=== PATIENT | male | born 1960 | race African-American/Black ===

== ENCOUNTER 2019-04-29 14:57 | Emergency (ER) | payer MEDICAID ==
[~2019-04-29] VITALS: Ht 180.3 cm; Wt 77.6 kg
[~2019-04-29 14:57] MED LIST: ALPR1TAB6 PO; ASPI-630 PO; ATOR20TA58 PO; CARV6.2511 PO; HYDR-2145 PO; LEVO500T59 PO; LINE600T12 PO; LISI-130 PO; LISI1TAB20 PO; OXYC-411 PO; OXYC5TAB4 PO; PRED20TA PO; QUET300T5 PO; TAMS0.4C97 PO; VORT5TAB PO
[2019-04-29] MEDS ORDERED: IV NORMAL SALINE 1000ML BAG 1,000 ML IV ONE (15:30)
[2019-04-29] MEDS ORDERED: fentaNYL PF VIAL 100 MCG/2 ML VIAL IVP ONE (15:30)
[2019-04-29] MEDS ORDERED: ONDANSETRON PF 4 MG/2 ML VIAL. IVP ONE (15:30)
--- NOTE | 2019-04-29 15:53 | PHYS DOC ---
Past Medical History Past Medical History: Anxiety, Asthma, Bipolar, COPD, Depression, DVT, High Cholesterol, Heart Disease, Hypertension Past Surgical History: Angioplasty, Hip Replacement, Other Additional Past Surgical Histo: Cardiac stent, R HIP REPL Alcohol Use: Occasionally Drug Use: Marijuana Adult General Chief Complaint Chief Complaint: SHORTNESS OF BREATH HPI HPI Patient is a 58 year old M who is brought in today by a family friend for concerns of R leg pain and shortness of breath. Pt tells me that he underwent R hip replacement on 04/20/19 in [place]. He has a history of prior degenerative joint problems and also a trauma to the hip back in the and has had surgery on the hip prior but this surgery on the was a replacement, possibly a revision. Not quite clear. Pt then states that his sister on so he was "stupid" and got in the car and drove 13 hours to come here to be with family. He is now out of his pain and anxiety medications and also noticing shortness of breath. He has pain in the R hip but also cramping pain in the R calf. He reports he has had prior blood clots but is not currently on any blood thinners. Pt also tells me and the nurse that he has a history of anxiety and severe depression and has had suicidal ideation in the past. When we asked if he was suicidal today he replied "I don't have to answer that". I then said that all we wanted to know is if he is safe and would be safe from self hard if discharged and his family said to him again "they just want to know that you are safe Avila" and then pt stated "well, no I don't want to today". Review of Systems Review of Systems Constitutional: Denies fever or chills [] HENT: Denies nasal congestion or sore throat [] Respiratory: Reports shortness of breath, cough Cardiovascular: Denies chest pain GI: Denies abdominal pain, nausea, vomiting, bloody stools or diarrhea [] Musculoskeletal: Reports R hip and calf pain. Integument: Healing R hip incision Neurologic: Denies headache, focal weakness or sensory changes [] All other systems were reviewed and found to be within normal limits, except as documented in this note. Current Medications Current Medications Current Medications Medications (Trade) Dose Ordered Sig/Melody Start Time Stop Time Status Last Admin Dose Admin Fentanyl Citrate (Fentanyl 2ml Vial) 50 mcg 1X ONCE 04/29/19 15:30 04/29/19 15:40 DC 04/29/19 16:12 50 MCG Info (CONTRAST GIVEN -- Rx MONITORING) 1 each PRN DAILY PRN 04/29/19 17:00 04/29/19 17:54 DC Iohexol (Omnipaque 350 Mg/ml) 90 ml 1X ONCE 04/29/19 16:45 04/29/19 16:51 DC 04/29/19 17:01 90 ML Ondansetron HCl (Zofran) 4 mg 1X ONCE 04/29/19 15:30 04/29/19 15:40 DC 04/29/19 16:10 4 MG Sodium Chloride 1,000 ml @ 1,000 mls/hr 1X ONCE 04/29/19 15:30 04/29/19 16:29 DC 04/29/19 16:08 1,000 MLS/HR Allergies Allergies Allergies Coded Allergies Type Severity Reaction Last Updated Verified Penicillins Allergy Severe ANAPHYLAXIS 06/22/17 Yes Physical Exam Physical Exam Constitutional: Well developed, well nourished, no acute distress, non-toxic appearance. Hyperverbal HENT: Normocephalic, atraumatic, bilateral external ears normal, oropharynx moist, no oral exudates, nose normal. [] Neck: Normal range of motion, no tenderness, supple, no stridor. [] Cardiovascular:Heart rate regular rhythm, no murmur [] Lungs & Thorax: Bilateral breath sounds clear to auscultation [] Abdomen: Bowel sounds normal, soft, no tenderness, no masses, no pulsatile masses. [] Skin: R hip incision: josé manuel in place and appears to be healing very well. No drainage and no signs of infection. Back: No tenderness, no CVA tenderness. [] Extremities: R hip pain with palpation, no deformity or edema noted. R calf pain with palpation, no erythema or warmth Neurologic: Alert and oriented X 3, normal motor function, normal sensory function, no focal deficits noted. [] Psychologic: Affect normal, judgement normal, mood normal. [] Current Patient Data Vital Signs Vital Signs Date Time Temp Pulse Resp B/P (MAP) Pulse Ox O2 Delivery O2 Flow Rate FiO2 04/29/19 17:24 86 14 132/79 (96) 91 Room Air 1/1/20 15:06 98.1 98.1 Lab Values Laboratory Tests Test 04/29/19 16:10 White Blood Count 5.3 x10^3/uL (4.0-11.0) Red Blood Count 2.62 x10^6/uL (4.30-5.70) L Hemoglobin 8.7 g/dL (13.0-17.5) L Hematocrit 25.7 % (39.0-53.0) L Mean Corpuscular Volume 98 fL (79-100) Mean Corpuscular Hemoglobin 33 pg (25-35) Mean Corpuscular Hemoglobin Concent 34 g/dL (31-37) Red Cell Distribution Width 13.2 % (11.5-14.5) Platelet Count 435 x10^3/uL (140-400) H Neutrophils (%) (Auto) 63 % (31-73) Lymphocytes (%) (Auto) 21 % (24-48) L Monocytes (%) (Auto) 12 % (0-9) H Eosinophils (%) (Auto) 2 % (0-3) Basophils (%) (Auto) 1 % (0-3) Neutrophils # (Auto) 3.3 x10^3/uL (1.8-7.7) Lymphocytes # (Auto) 1.1 x10^3/uL (1.0-4.8) Monocytes # (Auto) 0.7 x10^3/uL (0.0-1.1) Eosinophils # (Auto) 0.1 x10^3/uL (0.0-0.7) Basophils # (Auto) 0.1 x10^3/uL (0.0-0.2) Prothrombin Time 15.0 SEC (11.7-14.0) H Prothrombin Time INR 1.2 (0.8-1.1) H Activated Partial Thromboplast Time 34 SEC (24-38) Sodium Level 143 mmol/L (136-145) Potassium Level 3.8 mmol/L (3.5-5.1) Chloride Level 106 mmol/L (98-107) Carbon Dioxide Level 26 mmol/L (21-32) Anion Gap 11 (6-14) Blood Urea Nitrogen 23 mg/dL (8-26) Creatinine 1.3 mg/dL (0.7-1.3) Estimated GFR (Cockcroft-Gault) 69.1 BUN/Creatinine Ratio 18 (6-20) Glucose Level 72 mg/dL (70-99) Calcium Level 8.7 mg/dL (8.5-10.1) Magnesium Level 1.8 mg/dL (1.8-2.4) Total Bilirubin 0.2 mg/dL (0.2-1.0) Aspartate Amino Transferase (AST) 13 U/L (15-37) L Alanine Aminotransferase (ALT) 10 U/L (16-63) L Alkaline Phosphatase 94 U/L (46-116) Troponin I Quantitative < 0.017 ng/mL (0.000-0.055) RM-Lut-P-Type Natriuretic Peptide 251 pg/mL (0-124) H Total Protein 6.7 g/dL (6.4-8.2) Albumin 2.7 g/dL (3.4-5.0) L Albumin/Globulin Ratio 0.7 (1.0-1.7) L Laboratory Tests 04/29/19 16:10 Laboratory Tests 04/29/19 16:10 EKG EKG NSR, no STEMI Radiology/Procedures Radiology/Procedures [] Course & Med Decision Making Course & Med Decision Making Pertinent Labs and Imaging studies reviewed. (See chart for details) Pt with anemia, however is 1 week post op so to be expected but could be contributing to his SOB. Pt also has some irregularities on his CT scan in his lung that could be infectious but cannot rule out malignant process. Discussed this with pt. He would like to go home at this time and be with his family. Will cover for possible post operative pneumonia. He has anaphylaxis with PCN so will cover with Levaquin. Have discussed importance of close f/u with PCP to have recheck of lungs and he was given a copy of his CT report that also states this. Pt does not have evidence of a blood clot in his lungs or leg. His incision is healing nicely. Discussed need to move around often and to f/u very closely with his surgeon and he agrees with plan. Pt asking for pain medicine and anxiety medicine. I explained that I would not write for both but felt pain control would be more important at this time. Rx for [place] and Hydroxyzine given as well as a courtesy refill of his Li sinopril/HCTZ while he is here from out of town. Pt asked to return with any worsening symptoms. Aniyah Disclaimer Dragon Disclaimer This electronic medical record was generated, in whole or in part, using a voice recognition dictation system. Departure Departure Impression: Primary Impression: Pneumonia Additional Impression: Post-operative pain Disposition: 01 HOME, SELF-CARE Condition: IMPROVED Referrals: NO PCP (PCP) Patient Instructions: Glucose, Postprandial, Pneumonia, Adult, [id number] Additional Instructions: It is very important that you follow up with your surgeon to have a recheck of your hip. You have no evidence of blood clots today in either your lungs or leg. You do have possible pneumonia. They mention that the irregularities on the CT could be pneumonia but also could be malignancy (cancer) and that you need to have a recheck to make sure that they are resolving. Contact your doctor for recheck. Scripts Lisinopril/Hydrochlorothiazide (LISINOPRIL-HCTZ 20-25 MG TAB) 1 Each Tablet 1 TAB PO DAILY, #30 TAB 5 Refills Prov: LILIANA ORELLANA 04/29/19 Levofloxacin (LEVAQUIN) 750 Mg Tablet 1 TAB PO DAILY for 7 Days, #7 TAB 0 Refills Prov: LILIANA ORELLANA 04/29/19 Hydroxyzine Hcl (HYDROXYZINE HCL) 25 Mg Tablet 1 TAB PO TID PRN for ANXIETY / AGITATION, #15 TAB Prov: LILIANA ORELLANA 04/29/19 Hydrocodone/Apap 10-325 (NORCO 10-325 TABLET) 1 Each Tablet 1 TAB PO TID PRN for PAIN, #20 TAB Prov: LILIANA ORELLANA 04/29/19 Problem Qualifiers LILIANA ORELLANA Apr 29, 2019 15:53
--- NOTE | 2019-04-29 16:04 | RAD ---
VENOUS LOWER EXTREMITY RIGHT 04/29/2019 3:29 PM Clinical Information: Right hip surgery 04/20/2019. Pain in the right calf.. Comparison: None. Technique: Multiple grayscale, color Doppler, and spectral Doppler sonographic images of the lower extremity venous structures were obtained. Findings: The right common femoral, femoral, and popliteal veins exhibit normal compression, respiratory phasicity, and augmentation. No intraluminal thrombi are identified. Color Doppler flow is demonstrated in the right posterior tibial veins. Greater saphenous vein is patent at the saphenofemoral junction. Impression: 1. No evidence of deep venous thrombosis. Electronically signed by: Milagros Colby MD (04/29/2019 4:01 PM) [facility]
[2019-04-29 16:25] LABS: BASO # 0.1 x10^3/uL (0.0-0.2); BASO % 1 % (0-3); EOS # 0.1 x10^3/uL (0.0-0.7); EOS % 2 % (0-3); HEMATOCRIT 25.7 % (39.0-53.0); HEMOGLOBIN 8.7 g/dL (13.0-17.5); LYMPH # 1.1 x10^3/uL (1.0-4.8); LYMPH % 21 % (24-48); MEAN CORPUSCULAR HEMOGLOBIN 33 pg (25-35); MEAN CORPUSCULAR HGB CONC 34 g/dL (31-37); MEAN CORPUSCULAR VOLUME 98 fL (79-100); MONO # 0.7 x10^3/uL (0.0-1.1); MONO % 12 % (0-9); NEUT # 3.3 x10^3/uL (1.8-7.7); NEUT % 63 % (31-73); PLATELET COUNT 435 x10^3/uL (140-400); RED BLOOD COUNT 2.62 x10^6/uL (4.30-5.70); RED CELL DISTRIBUTION WIDTH 13.2 % (11.5-14.5); WHITE BLOOD COUNT 5.3 x10^3/uL (4.0-11.0)
[2019-04-29 16:39] LABS: CALCIUM 8.7 mg/dL (8.5-10.1); CREATININE 1.3 mg/dL (0.7-1.3); GFR 69.1; POTASSIUM 3.8 mmol/L (3.5-5.1)
[2019-04-29 16:41] LABS: ALBUMIN 2.7 g/dL (3.4-5.0); ALBUMIN/GLOBULIN RATIO 0.7 (1.0-1.7); MAGNESIUM 1.8 mg/dL (1.8-2.4); TOTAL BILIRUBIN 0.2 mg/dL (0.2-1.0); TOTAL PROTEIN 6.7 g/dL (6.4-8.2)
[2019-04-29] MEDS ORDERED: IOHEXOL 350 MG/ML 100 ML VIAL. IV ONE (16:45)
[2019-04-29] MEDS ORDERED: CONTRAST GIVEN. MC PRN (17:00)
--- NOTE | 2019-04-29 17:18 | RAD ---
CTA chest with and without contrast 04/29/2019. Reason for exam: Shortness of breath. Recent hip surgery. Possible pulmonary embolism. Helical CT images were made through the chest using an infusion of 90 mL Omnipaque 350. MIP reconstructions were performed. Exposure: One or more of the following individualized dose reduction techniques were utilized for this examination: 1. Automated exposure control 2. Adjustment of the mA and/or kV according to patient size 3. Use of iterative reconstruction technique. Comparison is made with a prior chest CT of 07/01/2017. FINDINGS: There is prominent emphysema through the lungs. There is now an irregular opacity in the right lower lobe measuring about 1.5 x 1.1 cm. This is not seen previously. Similar smaller areas are seen elsewhere in the right lower lobe and/or ill-defined. There is also a more well-defined right upper lobe nodule and sees image 54 of axial series 3). This measures about 6 mm across and was also not visible previously. No other pulmonary parenchymal abnormality is seen. The central airways show no obstruction. There is some mild diffuse bronchial wall thickening consistent with bronchitis. No enlarged lymph nodes are seen. The thoracic aorta is normal in caliber. Evaluation of the pulmonary arterial tree shows no abnormal filling defect extending to the subsegmental branch level. Images through the upper abdomen show no apparent abnormality. IMPRESSION: No evidence of pulmonary embolism. There are new irregular right lower lobe opacities and a small right upper lobe nodule. This could be inflammatory, although early multifocal malignancy in the lower lobe is also possible. Follow-up noncontrast CT in 3 months would be useful. Electronically signed by: Ted Adams Jr., MD (04/29/2019 5:15 PM) [place] [id number]
[2019-04-29 17:24] VITALS: BP 132/79
[2019-04-29] MEDS ORDERED: HYDR-3135 PO (17:31)
[2019-04-29] MEDS ORDERED: LEVO750T31 PO (17:31)
[2019-04-29] MEDS ORDERED: HYDR25TA PO (17:31)
[2019-04-29] MEDS ORDERED: LISI1TAB20 PO (17:40)
== END 2019-04-29 17:50 | disposition home or self-care (01) ==
LOC: ER 14:57
DX: J18.9 Pneumonia, unspecified organism (principal); G89.18 Other acute postprocedural pain; M25.551 Pain in right hip; M79.604 Pain in right leg; F31.9 Bipolar disorder, unspecified; J44.9 Chronic obstructive pulmonary disease, unspecified; E78.00 Pure hypercholesterolemia, unspecified; I11.9 Hypertensive heart disease without heart failure; Z96.641 Presence of right artificial hip joint; Z95.5 Presence of coronary angioplasty implant and graft; Z86.718 Personal history of other venous thrombosis and embolism; Z88.0 Allergy status to penicillin
CPT/HCPCS: 36415; 71275; 80053; 83735; 83880; 84484; 85025; 85610; 85730; 93971; 96374; 96375; 99285; J2405; J3010; J7030; Q9967; 96361

== ENCOUNTER 2019-05-04 11:21 | Emergency (ER) | payer MEDICAID ==
[~2019-05-04] VITALS: Ht 182.9 cm; Wt 76.7 kg
[~2019-05-04 11:21] MED LIST changes: +HYDR-3135 PO; +HYDR25TA PO; +LEVO750T31 PO
[2019-05-04 11:59] LABS: BASO # 0.1 x10^3/uL (0.0-0.2); BASO % 1 % (0-3); EOS # 0.2 x10^3/uL (0.0-0.7); EOS % 3 % (0-3); HEMATOCRIT 32.7 % (39.0-53.0); HEMOGLOBIN 11.1 g/dL (13.0-17.5); LYMPH # 0.9 x10^3/uL (1.0-4.8); LYMPH % 14 % (24-48); MEAN CORPUSCULAR HEMOGLOBIN 33 pg (25-35); MEAN CORPUSCULAR HGB CONC 34 g/dL (31-37); MEAN CORPUSCULAR VOLUME 97 fL (79-100); MONO # 0.7 x10^3/uL (0.0-1.1); MONO % 10 % (0-9); NEUT # 4.7 x10^3/uL (1.8-7.7); NEUT % 72 % (31-73); PLATELET COUNT 450 x10^3/uL (140-400); RED BLOOD COUNT 3.36 x10^6/uL (4.30-5.70); RED CELL DISTRIBUTION WIDTH 13.4 % (11.5-14.5); WHITE BLOOD COUNT 6.6 x10^3/uL (4.0-11.0)
[2019-05-04] MEDS: ASPIRIN CHEWABLE 81 MG TABLET. PO ONE (11:59)
[2019-05-04] MEDS: NITROGLYCERIN SUBLINGUAL 0.4 MG BOTTLE OF 25. SL PRN (12:00)
[2019-05-04 12:06] LABS: PROTHROMBIN TIME PATIENT 13.1 SEC (11.7-14.0)
--- NOTE | 2019-05-04 12:09 | PHYS DOC ---
Past Medical History Past Medical History: Anxiety, Asthma, Bipolar, COPD, Depression, DVT, High Cholesterol, Heart Disease, Hypertension Past Surgical History: Angioplasty, Hip Replacement, Other Additional Past Surgical Histo: Cardiac stent, R HIP REPL Additional Information: 0.5 PPD Alcohol Use: Occasionally Drug Use: Marijuana Adult General Chief Complaint Chief Complaint: CHEST PAIN HPI HPI Patient is a 58 year old male patient with history of hypertension, dyslipi demia, bipolar disorder, COPD, DVT who presents with complaint of chest pain. Patient complaining of left lower and lateral chest pain since yesterday as a constant aching pain that getting worse with movement and associated with shortness of breath, dizziness, palpitation and rated his pain 10 over 10. Patient had history of right hip replacement in [facility] 7 days ago and drove by himself 4 days ago. Patient had history of DVT several months ago but currently does not take any anticoagulation medication. Review of Systems Review of Systems Constitutional: Denies fever or chills [] Eyes: Denies change in visual acuity, redness, or eye pain [] HENT: Denies nasal congestion or sore throat [] Respiratory: Denies cough, reports shortness of breath [] Cardiovascular: No additional information not addressed in HPI [] GI: Denies abdominal pain, nausea, vomiting, bloody stools or diarrhea [] : Denies dysuria or hematuria [] Musculoskeletal: Denies back pain, reports joint pain [] Integument: Denies rash or skin lesions [] Neurologic: Denies headache, focal weakness or sensory changes [] Endocrine: Denies polyuria or polydipsia [] All other systems were reviewed and found to be within normal limits, except as documented in this note. Current Medications Current Medications Current Medications Medications (Trade) Dose Ordered Sig/[facility] Start Time Stop Time Status Last Admin Dose Admin Acetaminophen/ Hydrocodone Bitart (Lortab 5/325) 1 tab 1X ONCE 05/04/19 13:00 05/04/19 13:04 DC 05/04/19 13:29 1 TAB Aspirin (Children'S Aspirin) 324 mg 1X ONCE 05/04/19 12:00 05/04/19 12:01 DC 05/04/19 11:59 324 MG Fentanyl Citrate (Fentanyl 2ml Vial) 50 mcg 1X ONCE 05/04/19 12:00 05/04/19 12:01 DC 05/04/19 12:16 50 MCG Info (CONTRAST GIVEN -- Rx MONITORING) 1 each PRN DAILY PRN 05/04/19 13:15 05/06/19 13:14 Iohexol (Omnipaque 350 Mg/ml) 90 ml 1X ONCE 05/04/19 13:00 05/04/19 13:04 DC Nitroglycerin (Nitrostat) 0.4 mg PRN Q5MIN PRN 05/04/19 12:00 05/05/19 11:59 05/04/19 12:00 0.4 MG Allergies Allergies Allergies Coded Allergies Type Severity Reaction Last Updated Verified Penicillins Allergy Severe ANAPHYLAXIS 06/22/17 Yes Physical Exam Physical Exam Constitutional: Well nourished, mild distress, non-toxic appearance. [] HENT: Normocephalic, atraumatic. Eyes: PERRLA, EOMI, conjunctiva normal, no discharge. [] Neck: Normal range of motion, no tenderness, supple, no stridor. [] Cardiovascular:Heart rate regular rhythm, no murmur [] Lungs & Thorax: Bilateral breath sounds clear to auscultation , right lower lateral chest wall reproducible pain Abdomen: Bowel sounds normal, soft, no tenderness, no masses, no pulsatile masses. [] Skin: Warm, dry, no erythema, no rash. [] Back: No tenderness, no CVA tenderness. [] Extremities: No tenderness, no cyanosis, no clubbing, right hip painful range of motion, no extremity edema or positive Remy sign. Neurologic: Alert and oriented X 3, no focal deficits noted. [] Psychologic: Affect normal,mood normal. [] Current Patient Data Vital Signs Vital Signs Date Time Temp Pulse Resp B/P (MAP) Pulse Ox O2 Delivery O2 Flow Rate FiO2 05/04/19 13:29 18 94 Room Air 05/04/19 12:00 85 147/92 05/04/19 11:23 98.7 98.7 Lab Values Laboratory Tests Test 05/04/19 11:32 White Blood Count 6.6 x10^3/uL (4.0-11.0) Red Blood Count 3.36 x10^6/uL (4.30-5.70) L Hemoglobin 11.1 g/dL (13.0-17.5) L Hematocrit 32.7 % (39.0-53.0) L Mean Corpuscular Volume 97 fL (79-100) Mean Corpuscular Hemoglobin 33 pg (25-35) Mean Corpuscular Hemoglobin Concent 34 g/dL (31-37) Red Cell Distribution Width 13.4 % (11.5-14.5) Platelet Count 450 x10^3/uL (140-400) H Neutrophils (%) (Auto) 72 % (31-73) Lymphocytes (%) (Auto) 14 % (24-48) L Monocytes (%) (Auto) 10 % (0-9) H Eosinophils (%) (Auto) 3 % (0-3) Basophils (%) (Auto) 1 % (0-3) Neutrophils # (Auto) 4.7 x10^3/uL (1.8-7.7) Lymphocytes # (Auto) 0.9 x10^3/uL (1.0-4.8) L Monocytes # (Auto) 0.7 x10^3/uL (0.0-1.1) Eosinophils # (Auto) 0.2 x10^3/uL (0.0-0.7) Basophils # (Auto) 0.1 x10^3/uL (0.0-0.2) Prothrombin Time 13.1 SEC (11.7-14.0) Prothrombin Time INR 1.0 (0.8-1.1) D-Dimer (Rosario) 5.56 ug/mlFEU (0.00-0.50) H Sodium Level 139 mmol/L (136-145) Potassium Level 3.9 mmol/L (3.5-5.1) Chloride Level 101 mmol/L (98-107) Carbon Dioxide Level 30 mmol/L (21-32) Anion Gap 8 (6-14) Blood Urea Nitrogen 19 mg/dL (8-26) Creatinine 1.3 mg/dL (0.7-1.3) Estimated GFR (Cockcroft-Gault) 69.1 BUN/Creatinine Ratio 15 (6-20) Glucose Level 80 mg/dL (70-99) Calcium Level 9.0 mg/dL (8.5-10.1) Magnesium Level 2.0 mg/dL (1.8-2.4) Total Bilirubin 0.2 mg/dL (0.2-1.0) Aspartate Amino Transferase (AST) 14 U/L (15-37) L Alanine Aminotransferase (ALT) 8 U/L (16-63) L Alkaline Phosphatase 134 U/L (46-116) H Creatine Kinase 88 U/L (39-308) Troponin I Quantitative < 0.017 ng/mL (0.000-0.055) SA-Vwk-Q-Type Natriuretic Peptide 321 pg/mL (0-124) H Total Protein 7.5 g/dL (6.4-8.2) Albumin 3.3 g/dL (3.4-5.0) L Albumin/Globulin Ratio 0.8 (1.0-1.7) L Lipase 57 U/L (73-393) L Laboratory Tests 05/04/19 11:32 Laboratory Tests 05/04/19 11:32 EKG EKG EKG interpreted by me. EKG at 1127 showed normal sinus rhythm at rate of 84, normal [place] and QT intervals, no acute ST and T-wave elevation. Radiology/Procedures Radiology/Procedures [][facility] [address] [place], [place] [id number] IMAGING REPORT Signed PATIENT: DEANNE SHARMA ACCOUNT: [id number] : 1960 LOCATION: ER AGE: 58 SEX: M EXAM STATUS: REG ER ORD. PHYSICIAN: CAMERON DYER MD REASON: chest pain PROCEDURE: PORTABLE CHEST 1V EXAM: Chest, single view. HISTORY: Chest pain. COMPARISON: 04/29/2019 FINDINGS: A frontal view of the chest obtained. There is emphysema. There is slight blunting of the right costophrenic angle due to scarring or a trace pleural effusion. There is subtle opacity within the right lower lobe likely corresponding with nodularity on the recent CT. The previously demonstrated nodule within the right upper lobe demonstrates no clear radiographic correlate. The heart is normal in size. There is no pneumothorax. IMPRESSION: 1. Suspected nodular infiltrate within the right lower lobe, better characterized on the recent CT. The small nodule within the right upper lobe on the CT is not seen radiographically. 2. Emphysema. Electronically signed by: Randee Ramos MD (05/04/2019 12:12 PM) [place] [id number] DICTATED and SIGNED BY: RANDEE RAMOS MD DATE: 05/04/19 1212 [facility] [address] [place] [address] IMAGING REPORT Signed PATIENT: DEANNE SHARMA ACCOUNT: [id number] : 1960 LOCATION: ER AGE: 58 SEX: M EXAM STATUS: REG ER ORD. PHYSICIAN: CAMERON DYER MD REASON: chest pain and shortness of breath, history of DVT and recent surgery, elev PROCEDURE: CT ANGIOGRAPHY CHEST CTA OF THE CHEST WITH AND WITHOUT CONTRAST Clinical indications: Chest pain and shortness of breath. History of DVT recent surgery. Technique: Noncontrast axial localizer was performed. After IV infusion of 90 cc of Omnipaque 350, helical CT scanning of the chest was performed using the CT pulmonary embolism protocol. A coronal MIP reconstruction was generated. PQRS compliance Statement One or more of the following individualized dose reduction techniques were utilized for this study: 1. Automated exposure control 2. Adjustment of the mA and/or kV according to patient size 3. Use of iterative reconstruction technique Comparison: April 29, 2019. Findings: No pulmonary embolism is evident. No focal aneurysmal dilatation or dissection of the thoracic aorta is seen. The heart size is normal and no pericardial effusion is evident. No enlarged thoracic lymphadenopathy is evident. No adrenal mass is seen. No pleural effusion or pneumothorax is evident. Bilateral emphysema is again noted. The right upper lobe lung nodule seen centrally within the right upper lobe on image 54 and series 3 is unchanged. Ill-defined lateral inferior right lower lobe nodular infiltrate seen previously is unchanged. The other less prominent ill-defined nodular infiltrates of the more superior aspect of the right lower lobe are unchanged. Peribronchial thickening is seen consistent with bronchitis. No new lung nodule or new lung infiltrate is seen. No lytic process is seen. No adrenal mass is seen. IMPRESSION: No pulmonary embolism. Stable right lower lobe centrilobular ill-defined nodular lung infiltrates. This may be infectious or inflammatory in nature due to distal airway disease but recommend continued chest CT follow-up as previously recommended in 3 months. Stable right upper lobe lung nodule. No new lung infiltrates. Bilateral bronchitis. Electronically signed by: Kari Odonnell MD (05/04/2019 1:24 PM) [id number] DICTATED and SIGNED BY: KARI ODONNELL MD DATE: 05/04/19 1324 Course & Med Decision Making Course & Med Decision Making Pertinent Labs and Imaging studies reviewed. (See chart for details) I've spoken with the patient and/or caregivers. I've explained the patient's condition, diagnosis and treatment plan based on information available to me at this time. I've answered the patient's and/or caregivers questions and addressed any concerns. The patient and/or caregivers have a good understanding the eric ent's diagnosis, condition and treatment plan as can be expected at this point. Vital signs have been stabilized. The patient's condition is stable for discharge from the emergency department. The patient will pursue further outpatient evaluation with her primary care provider or other designated consulting physician as outlined in the discharge instructions. Patient and/or caregivers are agreeable to this plan of care and follow-up instructions have been explained in detail. The patient and/or caregivers have received these instructions in written format and expressed understanding of these discharge instructions. The patient and her caregivers are aware that if any significant change in condition or worsening of symptoms should prompt him to immediately return to this of the closest emergency department. If an emergent department is not readily available I would encourage him to call 911. Aniyah Disclaimer Aniyah Disclaimer This electronic medical record was generated, in whole or in part, using a voice recognition dictation system. Departure Departure Impression: Primary Impression: Musculoskeletal chest pain Additional Impressions: Anemia Status post right hip replacement Disposition: HOME, SELF-CARE (at 1347) Condition: IMPROVED Referrals: NO PCP (PCP) Patient Instructions: Chest Wall Pain, Total Hip Replacement, Care After Additional Instructions: Continue current home medication Follow-up with your primary care physician in 2-3 days Return to ER if not getting better Thank you for visiting [facility]. We appreciate you trusting us with your care. If any additional problems come up don't hesitate to return to visit us. Please follow up with your primary care provider so they can plan additional care if needed and know about the problem that you had. If symptoms worsen come back to the Emergency Department. Any concerning symptoms that start such as chest pain, shortness of air, weakness or numbness on one side of the body, running high fevers or any other concerning symptoms return to the ER. Scripts Hydrocodone/Apap 5-325 (NORCO 5-325 TABLET) 1 Each Tablet 1 TAB PO PRN Q6HRS PRN for PAIN, #8 TAB 0 Refills Prov: CAMERON DYER MD 05/04/19 Problem Qualifiers Additional Impressions: Anemia Anemia type: unspecified type Qualified Codes: D64.9 - Anemia, unspecified CAMERON DYER MD May 04, 2019 12:09
--- NOTE | 2019-05-04 12:15 | RAD ---
EXAM: Chest, single view. HISTORY: Chest pain. COMPARISON: 04/29/2019 FINDINGS: A frontal view of the chest obtained. There is emphysema. There is slight blunting of the right costophrenic angle due to scarring or a trace pleural effusion. There is subtle opacity within the right lower lobe likely corresponding with nodularity on the recent CT. The previously demonstrated nodule within the right upper lobe demonstrates no clear radiographic correlate. The heart is normal in size. There is no pneumothorax. IMPRESSION: 1. Suspected nodular infiltrate within the right lower lobe, better characterized on the recent CT. The small nodule within the right upper lobe on the CT is not seen radiographically. 2. Emphysema. Electronically signed by: Randee Bishop MD (05/04/2019 12:12 PM) [place] [id number]
[2019-05-04] MEDS: fentaNYL PF VIAL 100 MCG/2 ML VIAL IVP ONE (12:16)
[2019-05-04 12:17] LABS: ALBUMIN 3.3 g/dL (3.4-5.0); ALBUMIN/GLOBULIN RATIO 0.8 (1.0-1.7); CREATININE 1.3 mg/dL (0.7-1.3); GFR 69.1; POTASSIUM 3.9 mmol/L (3.5-5.1); TOTAL BILIRUBIN 0.2 mg/dL (0.2-1.0); TOTAL PROTEIN 7.5 g/dL (6.4-8.2)
[2019-05-04 12:24] LABS: D-DIMER 5.56 ug/mlFEU (0.00-0.50)
--- NOTE | 2019-05-04 12:24 | EKG ---
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
[2019-05-04] MEDS: IOHEXOL 350 MG/ML 100 ML VIAL. IV ONE (13:00)
[2019-05-04] MEDS ORDERED: CONTRAST GIVEN. MC PRN (13:15)
--- NOTE | 2019-05-04 13:28 | RAD ---
CTA OF THE CHEST WITH AND WITHOUT CONTRAST Clinical indications: Chest pain and shortness of breath. History of DVT recent surgery. Technique: Noncontrast axial localizer was performed. After IV infusion of 90 cc of Omnipaque 350, helical CT scanning of the chest was performed using the CT pulmonary embolism protocol. A coronal MIP reconstruction was generated. PQRS compliance Statement One or more of the following individualized dose reduction techniques were utilized for this study: 1. Automated exposure control 2. Adjustment of the mA and/or kV according to patient size 3. Use of iterative reconstruction technique Comparison: April 29, 2019. Findings: No pulmonary embolism is evident. No focal aneurysmal dilatation or dissection of the thoracic aorta is seen. The heart size is normal and no pericardial effusion is evident. No enlarged thoracic lymphadenopathy is evident. No adrenal mass is seen. No pleural effusion or pneumothorax is evident. Bilateral emphysema is again noted. The right upper lobe lung nodule seen centrally within the right upper lobe on image 54 and series 3 is unchanged. Ill-defined lateral inferior right lower lobe nodular infiltrate seen previously is unchanged. The other less prominent ill-defined nodular infiltrates of the more superior aspect of the right lower lobe are unchanged. Peribronchial thickening is seen consistent with bronchitis. No new lung nodule or new lung infiltrate is seen. No lytic process is seen. No adrenal mass is seen. IMPRESSION: No pulmonary embolism. Stable right lower lobe centrilobular ill-defined nodular lung infiltrates. This may be infectious or inflammatory in nature due to distal airway disease but recommend continued chest CT follow-up as previously recommended in 3 months. Stable right upper lobe lung nodule. No new lung infiltrates. Bilateral bronchitis. Electronically signed by: Gerald Odonnell MD (05/04/2019 1:24 PM) [id number]
[2019-05-04] MEDS: HYDROcodone/APAP 5/325MG 1 TAB TABLET PO ONE (13:29)
[2019-05-04 13:34] VITALS: BP 145/82
[2019-05-04] MEDS ORDERED: HYDR-3164 PO (13:49)
== END 2019-05-04 14:06 | disposition home or self-care (01) ==
LOC: ER 11:21
DX: R07.89 Other chest pain (principal); D64.9 Anemia, unspecified; Z96.641 Presence of right artificial hip joint; F31.9 Bipolar disorder, unspecified; J44.9 Chronic obstructive pulmonary disease, unspecified; E78.00 Pure hypercholesterolemia, unspecified; I11.9 Hypertensive heart disease without heart failure; Z86.73 Personal history of transient ischemic attack (TIA), and cerebral infarction without residual deficits; F17.200 Nicotine dependence, unspecified, uncomplicated; Z95.5 Presence of coronary angioplasty implant and graft; Z88.0 Allergy status to penicillin
CPT/HCPCS: 36415; 71045; 71275; 80053; 82550; 83690; 83735; 83880; 84484; 85025; 85379; 85610; 93005; 96374; 99285; J3010; Q9967

== ENCOUNTER 2019-06-09 10:31 | Observation (INO) | payer MEDICAID ==
[~2019-06-09] VITALS: Ht 180.3 cm; Wt 71.0 kg
[~2019-06-09 10:31] MED LIST changes: +HYDR-3164 PO
--- NOTE | 2019-06-09 11:13 | PHYS DOC ---
Past Medical History Past Medical History: Anxiety, Asthma, Bipolar, COPD, Depression, DVT, High Cholesterol, Heart Disease, Hypertension Past Surgical History: Angioplasty, Hip Replacement, Other Additional Past Surgical Histo: Cardiac stent, R HIP REPL Smoking Status: Current Every Day Smoker Alcohol Use: Occasionally Drug Use: Marijuana Adult General Chief Complaint Chief Complaint: CHEST PAIN [facility] HPI Patient is a 58 year old with history of hypertension, dyslipidemia, cardiac problem, bipolar, COPD, DVT who presents with complaint of chest pain. Patient complaining of left lower chest and substernal pressure pain since yesterday as a constant pain and rated his pain 9/10. She said the pain radiated to his back and associated with shortness of breath without dizziness, palpitation, cough and congestion, fever and chills, change of pain with activity and movement. Patient states he thinks his chest pain is related to not taking his blood pressure medication. Patient states he did not take blood pressure medication for the last one month because of lack of urination recently had insurance coverage. Patient had the same chest pain for months old. Patient states he had right hip replacement 1 month ago and currently does not take any anticoagulative medication. Patient moved from [place] to [facility] area recently and does not have a primary care physician. Patient complaining of right hip pain and asking for pain medication from the moment he presented to ER. Review of Systems Review of Systems Constitutional: Denies fever or chills [] Eyes: Denies change in visual acuity, redness, or eye pain [] HENT: Denies nasal congestion or sore throat [] Respiratory: Denies cough, reports shortness of breath [] Cardiovascular: No additional information not addressed in HPI [] GI: Denies abdominal pain, nausea, vomiting, bloody stools or diarrhea [] : Denies dysuria or hematuria [] Musculoskeletal: Denies back pain, reports joint pain [] Integument: Denies rash or skin lesions [] Neurologic: Denies headache, focal weakness or sensory changes [] Endocrine: Denies polyuria or polydipsia [] All other systems were reviewed and found to be within normal limits, except as documented in this note. Current Medications Current Medications Current Medications Medications (Trade) Dose Ordered Sig/Melody Start Time Stop Time Status Last Admin Dose Admin Aspirin (Children'S Aspirin) 324 mg 1X ONCE 06/09/19 11:15 06/09/19 11:16 DC 06/09/19 11:27 324 MG Nitroglycerin (Nitrostat) 0.4 mg PRN Q5MIN PRN 06/09/19 11:15 06/10/19 11:14 06/09/19 11:27 0.4 MG Allergies Allergies Allergies Coded Allergies Type Severity Reaction Last Updated Verified Penicillins Allergy Severe ANAPHYLAXIS 06/22/17 Yes Physical Exam Physical Exam Constitutional: Well nourished, mild distress, non-toxic appearance. [] HENT: Normocephalic, atraumatic. Eyes: PERRLA, EOMI, conjunctiva normal, no discharge. [] Neck: Normal range of motion, no tenderness, supple, no stridor. [] Cardiovascular:Heart rate regular rhythm, no murmur [] Lungs & Thorax: Bilateral breath sounds clear to auscultation [] Abdomen: Bowel sounds normal, soft, no tenderness, no masses, no pulsatile masses. [] Skin: Warm, dry, no erythema, no rash. [] Back: No tenderness, no CVA tenderness. [] Extremities: No tenderness, no cyanosis, no clubbing, ROM intact, no edema. [] Neurologic: Alert and oriented X 3, no focal deficits noted. [] Psychologic: Affect anxious, mood normal. [] Current Patient Data Vital Signs Vital Signs Date Time Temp Pulse Resp B/P (MAP) Pulse Ox O2 Delivery O2 Flow Rate FiO2 06/09/19 11:27 83 192/116 06/09/19 10:44 98.2 16 99 Room Air 98.2 Lab Values Laboratory Tests Test 06/09/19 11:18 White Blood Count 6.8 x10^3/uL (4.0-11.0) Red Blood Count 4.26 x10^6/uL (4.30-5.70) L Hemoglobin 13.6 g/dL (13.0-17.5) Hematocrit 40.5 % (39.0-53.0) Mean Corpuscular Volume 95 fL (79-100) Mean Corpuscular Hemoglobin 32 pg (25-35) Mean Corpuscular Hemoglobin Concent 34 g/dL (31-37) Red Cell Distribution Width 13.4 % (11.5-14.5) Platelet Count 257 x10^3/uL (140-400) Neutrophils (%) (Auto) 74 % (31-73) H Lymphocytes (%) (Auto) 14 % (24-48) L Monocytes (%) (Auto) 10 % (0-9) H Eosinophils (%) (Auto) 1 % (0-3) Basophils (%) (Auto) 1 % (0-3) Neutrophils # (Auto) 5.0 x10^3/uL (1.8-7.7) Lymphocytes # (Auto) 1.0 x10^3/uL (1.0-4.8) Monocytes # (Auto) 0.7 x10^3/uL (0.0-1.1) Eosinophils # (Auto) 0.1 x10^3/uL (0.0-0.7) Basophils # (Auto) 0.1 x10^3/uL (0.0-0.2) Prothrombin Time 13.3 SEC (11.7-14.0) Prothrombin Time INR 1.0 (0.8-1.1) D-Dimer (Rosario) 2.07 ug/mlFEU (0.00-0.50) H Sodium Level 142 mmol/L (136-145) Potassium Level 4.1 mmol/L (3.5-5.1) Chloride Level 104 mmol/L (98-107) Carbon Dioxide Level 31 mmol/L (21-32) Anion Gap 7 (6-14) Blood Urea Nitrogen 30 mg/dL (8-26) H Creatinine 1.4 mg/dL (0.7-1.3) H Estimated GFR (Cockcroft-Gault) 63.4 BUN/Creatinine Ratio 21 (6-20) H Glucose Level 93 mg/dL (70-99) Calcium Level 9.3 mg/dL (8.5-10.1) Magnesium Level 2.0 mg/dL (1.8-2.4) Total Bilirubin 0.3 mg/dL (0.2-1.0) Aspartate Amino Transferase (AST) 18 U/L (15-37) Alanine Aminotransferase (ALT) 16 U/L (16-63) Alkaline Phosphatase 122 U/L (46-116) H Creatine Kinase 98 U/L (39-308) Troponin I Quantitative < 0.017 ng/mL (0.000-0.055) KC-Evd-K-Type Natriuretic Peptide 485 pg/mL (0-124) H Total Protein 7.3 g/dL (6.4-8.2) Albumin 3.5 g/dL (3.4-5.0) Albumin/Globulin Ratio 0.9 (1.0-1.7) L Laboratory Tests 06/09/19 11:18 Laboratory Tests 06/09/19 11:18 EKG EKG EKG interpreted by me. EKG at 1038 showed normal sinus rhythm at rate of 88, left atrial abnormality, abnormal left axis deviation, T wave abnormality high l ateral leads, no acute ST-T wave elevation. Radiology/Procedures Radiology/Procedures [facility] [address] [place] [address] IMAGING REPORT Signed PATIENT: DEANNE SHARMA ACCOUNT: [id number] : 1960 LOCATION: ER AGE: 58 SEX: M EXAM STATUS: PRE ER ORD. PHYSICIAN: CAMERON DYER MD REASON: chest pain PROCEDURE: PORTABLE CHEST 1V PORTABLE CHEST 1V Clinical indications: Chest pain. COMPARISON: June 22, 2017. May 04, 2019. Findings: Blunting of the right lateral costophrenic angle is unchanged consistent with pleural thickening. No acute lung infiltrate or pleural effusion or pulmonary edema or lung mass or pneumothorax is seen. The heart size, pulmonary vasculature, mediastinum and both santiago are unremarkable. Impression: No acute radiographic abnormality is seen. Electronically signed by: Kari Odonnell MD (06/09/2019 11:31 AM) [facility] DICTATED and SIGNED BY: KARI ODONNELL MD DATE: 06/09/19 1131 [facility] [address] [place] [address] IMAGING REPORT Signed PATIENT: DEANNE SHARMA ACCOUNT: [id number] : 1960 LOCATION: ED HOLD AGE: 58 SEX: M EXAM STATUS: ADM IN ORD. PHYSICIAN: CAMERON DYER MD REASON: recent hip surgery, chest pain, elevated d-dimer PROCEDURE: LUNG VENT/PERFUSION SCAN(VQ) Ventilation/perfusion lung scan. HISTORY: Recent hip surgery, chest pain, elevated d-dimer, short of breath, history of smoking Ventilation study was done using 10.7 mCi xenon-133. There is mild heterogeneity of the lungs initially which fill in on later images consistent with a history of COPD. Perfusion images were done using 5.5 mCi technetium 99m MAA injected intravenously. There is heterogeneity of the distribution of the MAA although similar to the early phase ventilation images probably related to COPD although small emboli could not be excluded. Due to the COPD this study is indeterminate. CT arteriogram could be of benefit. IMPRESSION: 1. Heterogeneous distribution of the early phase ventilation images and heterogeneity of the perfusion images probably related to COPD. 2. A small pulmonary embolus would be difficult to exclude. 3. Indeterminate for a pulmonary embolus, CT arteriogram may be of benefit. Electronically signed by: Charles Barroso MD (06/09/2019 2:58 PM) [id number] DICTATED and SIGNED BY: CHARLES BARROSO MD DATE: 06/09/19 1458 Course & Med Decision Making Course & Med Decision Making Pertinent Labs and Imaging studies reviewed. (See chart for details) Patient requiring admission for further evaluation and treatment. Discussed with Dr. Shafer who is in agreement with admission. Discussed findings and plan with patient and family, who acknowledge understanding and agreement. Dragon Disclaimer Dragon Disclaimer This electronic medical record was generated, in whole or in part, using a voice recognition dictation system. Departure Departure Impression: Primary Impression: Acute chest pain Additional Impressions: Elevated d-dimer Renal insufficiency Disposition: ADMITTED INPATIENT Admitting Physician: HIMS Condition: IMPROVED Referrals: NO PCP (PCP) The HEART Score for CP Pts HEART Score for Chest Pain: HEART Score for Chest Pain Response (Comments) Value History Moderately Suspicious 1 ECG Nonspecific Repolarizatio 1 Age >45 - < 65 1 Risk Factors 1 or 2 Risk Factors 1 Troponin < Normal Limit 0 Total 4 Risk Factors: Risk Factors: DM, Current or recent (<one month) smoker, HTN, HLP, family history of CAD, obesity. Risk Scores: Score 0 - 3: 2.5% MACE over next 6 weeks - Discharge Home Score 4 - 6: 20.3% MACE over next 6 weeks - Admit for Clinical Observation Score 7 - 10: 72.7% MACE over next 6 weeks - Early Invasive Strategies Problem Qualifiers CAMERON DYER MD Jun 09, 2019 11:13
[2019-06-09] MEDS ORDERED: ASPIRIN CHEWABLE 81 MG TABLET. PO ONE (11:15)
[2019-06-09] MEDS ORDERED: NITROGLYCERIN SUBLINGUAL 0.4 MG BOTTLE OF 25. SL PRN (11:15)
[2019-06-09 11:27] LABS: BASO # 0.1 x10^3/uL (0.0-0.2); BASO % 1 % (0-3); EOS # 0.1 x10^3/uL (0.0-0.7); EOS % 1 % (0-3); HEMATOCRIT 40.5 % (39.0-53.0); HEMOGLOBIN 13.6 g/dL (13.0-17.5); LYMPH % 14 % (24-48); MEAN CORPUSCULAR HEMOGLOBIN 32 pg (25-35); MEAN CORPUSCULAR HGB CONC 34 g/dL (31-37); MEAN CORPUSCULAR VOLUME 95 fL (79-100); MONO # 0.7 x10^3/uL (0.0-1.1); MONO % 10 % (0-9); NEUT % 74 % (31-73); PLATELET COUNT 257 x10^3/uL (140-400); RED BLOOD COUNT 4.26 x10^6/uL (4.30-5.70); RED CELL DISTRIBUTION WIDTH 13.4 % (11.5-14.5); WHITE BLOOD COUNT 6.8 x10^3/uL (4.0-11.0)
--- NOTE | 2019-06-09 11:34 | RAD ---
PORTABLE CHEST 1V Clinical indications: Chest pain. COMPARISON: June 22, 2017. May 04, 2019. Findings: Blunting of the right lateral costophrenic angle is unchanged consistent with pleural thickening. No acute lung infiltrate or pleural effusion or pulmonary edema or lung mass or pneumothorax is seen. The heart size, pulmonary vasculature, mediastinum and both santiago are unremarkable. Impression: No acute radiographic abnormality is seen. Electronically signed by: Gerald Odonnell MD (06/09/2019 11:31 AM) [facility]
[2019-06-09 11:44] LABS: CALCIUM 9.3 mg/dL (8.5-10.1); CREATININE 1.4 mg/dL (0.7-1.3); GFR 63.4; POTASSIUM 4.1 mmol/L (3.5-5.1)
[2019-06-09 11:46] LABS: PROTHROMBIN TIME PATIENT 13.3 SEC (11.7-14.0)
[2019-06-09 11:49] LABS: D-DIMER 2.07 ug/mlFEU (0.00-0.50)
[2019-06-09 11:50] LABS: ALBUMIN 3.5 g/dL (3.4-5.0); ALBUMIN/GLOBULIN RATIO 0.9 (1.0-1.7); TOTAL BILIRUBIN 0.3 mg/dL (0.2-1.0); TOTAL PROTEIN 7.3 g/dL (6.4-8.2)
--- NOTE | 2019-06-09 12:06 | EKG ---
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
[2019-06-09] MEDS ORDERED: HYDROcodone/APAP 5/325MG 1 TAB TABLET PO ONE (13:15)
--- NOTE | 2019-06-09 13:46 | PDOC1 ---
History and Physical Date of Admission Date of Admission DATE: 06/09/19 TIME: 13:46 Identification/Chief Complaint Chief Complaint MAMTAEN IN ER 58 year old with history of hypertension, dyslipidemia, , bipolar, COPD, DVT who presents with complaint of chest pain. complaining of left lower chest and substernal pressure pain since yesterday as a constant pain and rated his pain 9/10. pain radiated to his back and associated with shortness of breath without dizziness, palpitation, cough and congestion, fever and chills, change of pain with activity and movement. thinks his chest pain is related to not taking his blood pressure medication. Patient states he did not take blood pressure medication for the last one month because of lack of urination recently had insurance coverage. Patient had the same chest pain for months Past Medical History Past Medical History Past Medical History Past Medical History: Anxiety, Asthma, Bipolar, COPD, Depression, DVT, High Cholesterol, Heart Disease, Hypertension Past Surgical History: Angioplasty, Hip Replacement, Other Additional Past Surgical Histo: Cardiac stent, R HIP REPL Smoking Status: Current Every Day Smoker Alcohol Use: Occasionally Drug Use: Marijuana fhx htn Cardiovascular: CAD, HTN Pulmonary: Bronchitis, COPD GI: GERD Heme/Onc: No pertinent hx Hepatobiliary: No pertinent hx Psych: Anxiety, Depression Renal/: Chronic renal insuff Past Surgical History Past Surgical History: Other, No pertinent history Family History Family History: Hypertension Social History Smoke: <1 pack per day ALCOHOL: occassional Drugs: Marijuana Current Problem List Problem List Problems Medical Problems: (1) Acute chest pain Status: Acute (2) Elevated d-dimer Status: Acute (3) Renal insufficiency Status: Acute Current Medications Current Medications Current Medications Aspirin (Children'S Aspirin) 324 mg 1X ONCE PO Last administered on 06/09/19at 11:27; Start 06/09/19 at 11:15; Stop 06/09/19 at 11:16; Status DC Nitroglycerin (Nitrostat) 0.4 mg PRN Q5MIN PRN SL CP RATING > 1/10 Last administered on 06/09/19at 11:27; Start 06/09/19 at 11:15; Stop 06/10/19 at 11:14 Acetaminophen/ Hydrocodone Bitart (Lortab 5/325) 1 tab 1X ONCE PO Last administered on 06/09/19at 13:44; Start 06/09/19 at 13:15; Stop 06/09/19 at 13:16; Status DC Active Scripts Active Crescent 5-325 Tablet (Acetaminophen/Hydrocodone Bitart) 1 Each Tablet 1 Tab PO PRN Q6HRS PRN Lisinopril-Hctz 20-25 Mg Tab (Lisinopril/Hydrochlorothiazide) 1 Each Tablet 1 Tab PO DAILY Levaquin (Levofloxacin) 750 Mg Tablet 1 Tab PO DAILY 7 Days Hydroxyzine Hcl 25 Mg Tablet 1 Tab PO TID PRN Crescent 10-325 Tablet (Acetaminophen/Hydrocodone Bitart) 1 Each Tablet 1 Tab PO TID PRN Hydrochlorothiazide Tablet (Hydrochlorothiazide) 25 Mg Tablet 25 Mg PO DAILY 30 Days Oxycodone-Acetaminophen 10-325 (Oxycodone Hcl/Acetaminophen) 1 Each Tablet 1 Tab PO PRN Q6HRS PRN Aspirin 81 Mg Tab.chew 81 Mg PO DAILYWBKFT 30 Days Lisinopril 40 Mg Tablet 40 Mg PO DAILY 30 Days Carvedilol (Carvedilol) 6.25 Mg Tablet 6.25 Mg PO BIDWMEALS 30 Days Atorvastatin Calcium 20 Mg Tablet 20 Mg PO QHS 30 Days Alprazolam 1 Mg Tablet 1 Mg PO PRN Q8HRS PRN Flomax (Tamsulosin Hcl) 0.4 Mg Cap.er.24h 0.4 Mg PO DAILY 30 Days Reported Trintellix (Vortioxetine) 5 Mg Tablet 5 Mg PO HS Seroquel (Quetiapine Fumarate) 300 Mg Tablet 1 Tab PO QHS Allergies Allergies: Coded Allergies: Penicillins (Verified Allergy, Severe, ANAPHYLAXIS, 06/22/17) ROS Review of System Review of Systems Review of Systems Constitutional: Denies fever or chills [] Eyes: Denies change in visual acuity, redness, or eye pain [] HENT: Denies nasal congestion or sore throat [] Respiratory: Denies cough, reports shortness of breath [] Cardiovascular: No additional information not addressed in HPI [] GI: Denies abdominal pain, nausea, vomiting, bloody stools or diarrhea [] : Denies dysuria or hematuria [] Musculoskeletal: Denies back pain, reports joint pain [] Integument: Denies rash or skin lesions [] Neurologic: Denies headache, focal weakness or sensory changes [] Endocrine: Denies polyuria or polydipsia [] 14 PT systems were reviewed and found to be within normal limits, except as documented Cardiovascular: yes Chest Pain Musculoskeletal: Yes Joint Stiffness Skin: No Dry Skin, No Eczema, No Hair Changes, No Lumps, No Mole Changes, No Mottling, No Nail Changes, No Pruritus, No Rash, No Skin Lesion Changes, No Other, No Acne Physical Exam Physical Exam Physical Exam Physical Exam Constitutional: Well nourished, mild distress, non-toxic appearance. [] HENT: Normocephalic, atraumatic. Eyes: PERRLA, EOMI, conjunctiva normal, no discharge. [] Neck: Normal range of motion, no tenderness, supple, no stridor. [] Cardiovascular:Heart rate regular rhythm, no murmur [] Lungs & Thorax: Bilateral breath sounds clear to auscultation [] Abdomen: Bowel sounds normal, soft, no tenderness, no masses, no pulsatile masses. [] Skin: Warm, dry, no erythema, no rash. [] Back: No tenderness, no CVA tenderness. [] Extremities: No tenderness, no cyanosis, no clubbing, ROM intact, no edema. [] Neurologic: Alert and oriented X 3, no focal deficits noted. [] Psychologic: Affect anxious, mood normal. [] General: Alert, Oriented X3, Cooperative, mild distress HEENT: Mucous membr. moist/pink Lungs: Clear to auscultation, Normal air movement Heart: RRR, no thrills Abdomen: Normal bowel sounds, Soft Rectal Exam: not examined PELVIC: Examination not indicated Extremities: No cyanosis, No edema Neuro: Normal speech, Sensation intact, Cranial nerves 3-12 NL Psych/Mental Status: Mental status NL, Mood NL Vitals Vitals Vital Signs Date Time Temp Pulse Resp B/P (MAP) Pulse Ox O2 Delivery O2 Flow Rate FiO2 06/09/19 11:27 83 192/116 06/09/19 10:44 98.2 16 99 Room Air 98.2 Labs Labs Laboratory Tests Test 06/09/19 11:18 White Blood Count 6.8 x10^3/uL (4.0-11.0) Red Blood Count 4.26 x10^6/uL (4.30-5.70) Hemoglobin 13.6 g/dL (13.0-17.5) Hematocrit 40.5 % (39.0-53.0) Mean Corpuscular Volume 95 fL (79-100) Mean Corpuscular Hemoglobin 32 pg (25-35) Mean Corpuscular Hemoglobin Concent 34 g/dL (31-37) Red Cell Distribution Width 13.4 % (11.5-14.5) Platelet Count 257 x10^3/uL (140-400) Neutrophils (%) (Auto) 74 % (31-73) Lymphocytes (%) (Auto) 14 % (24-48) Monocytes (%) (Auto) 10 % (0-9) Eosinophils (%) (Auto) 1 % (0-3) Basophils (%) (Auto) 1 % (0-3) Neutrophils # (Auto) 5.0 x10^3/uL (1.8-7.7) Lymphocytes # (Auto) 1.0 x10^3/uL (1.0-4.8) Monocytes # (Auto) 0.7 x10^3/uL (0.0-1.1) Eosinophils # (Auto) 0.1 x10^3/uL (0.0-0.7) Basophils # (Auto) 0.1 x10^3/uL (0.0-0.2) Prothrombin Time 13.3 SEC (11.7-14.0) Prothromb Time International Ratio 1.0 (0.8-1.1) D-Dimer (Rosario) 2.07 ug/mlFEU (0.00-0.50) Sodium Level 142 mmol/L (136-145) Potassium Level 4.1 mmol/L (3.5-5.1) Chloride Level 104 mmol/L (98-107) Carbon Dioxide Level 31 mmol/L (21-32) Anion Gap 7 (6-14) Blood Urea Nitrogen 30 mg/dL (8-26) Creatinine 1.4 mg/dL (0.7-1.3) Estimated GFR (Cockcroft-Gault) 63.4 BUN/Creatinine Ratio 21 (6-20) Glucose Level 93 mg/dL (70-99) Calcium Level 9.3 mg/dL (8.5-10.1) Magnesium Level 2.0 mg/dL (1.8-2.4) Total Bilirubin 0.3 mg/dL (0.2-1.0) Aspartate Amino Transf (AST/SGOT) 18 U/L (15-37) Alanine Aminotransferase (ALT/SGPT) 16 U/L (16-63) Alkaline Phosphatase 122 U/L (46-116) Creatine Kinase 98 U/L (39-308) Troponin I Quantitative < 0.017 ng/mL (0.000-0.055) HS-Hko-L-Type Natriuretic Peptide 485 pg/mL (0-124) Total Protein 7.3 g/dL (6.4-8.2) Albumin 3.5 g/dL (3.4-5.0) Albumin/Globulin Ratio 0.9 (1.0-1.7) Laboratory Tests Test 06/09/19 11:18 White Blood Count 6.8 x10^3/uL (4.0-11.0) Red Blood Count 4.26 x10^6/uL (4.30-5.70) Hemoglobin 13.6 g/dL (13.0-17.5) Hematocrit 40.5 % (39.0-53.0) Mean Corpuscular Volume 95 fL (79-100) Mean Corpuscular Hemoglobin 32 pg (25-35) Mean Corpuscular Hemoglobin Concent 34 g/dL (31-37) Red Cell Distribution Width 13.4 % (11.5-14.5) Platelet Count 257 x10^3/uL (140-400) Neutrophils (%) (Auto) 74 % (31-73) Lymphocytes (%) (Auto) 14 % (24-48) Monocytes (%) (Auto) 10 % (0-9) Eosinophils (%) (Auto) 1 % (0-3) Basophils (%) (Auto) 1 % (0-3) Neutrophils # (Auto) 5.0 x10^3/uL (1.8-7.7) Lymphocytes # (Auto) 1.0 x10^3/uL (1.0-4.8) Monocytes # (Auto) 0.7 x10^3/uL (0.0-1.1) Eosinophils # (Auto) 0.1 x10^3/uL (0.0-0.7) Basophils # (Auto) 0.1 x10^3/uL (0.0-0.2) Prothrombin Time 13.3 SEC (11.7-14.0) Prothromb Time International Ratio 1.0 (0.8-1.1) D-Dimer (Rosario) 2.07 ug/mlFEU (0.00-0.50) Sodium Level 142 mmol/L (136-145) Potassium Level 4.1 mmol/L (3.5-5.1) Chloride Level 104 mmol/L (98-107) Carbon Dioxide Level 31 mmol/L (21-32) Anion Gap 7 (6-14) Blood Urea Nitrogen 30 mg/dL (8-26) Creatinine 1.4 mg/dL (0.7-1.3) Estimated GFR (Cockcroft-Gault) 63.4 BUN/Creatinine Ratio 21 (6-20) Glucose Level 93 mg/dL (70-99) Calcium Level 9.3 mg/dL (8.5-10.1) Magnesium Level 2.0 mg/dL (1.8-2.4) Total Bilirubin 0.3 mg/dL (0.2-1.0) Aspartate Amino Transf (AST/SGOT) 18 U/L (15-37) Alanine Aminotransferase (ALT/SGPT) 16 U/L (16-63) Alkaline Phosphatase 122 U/L (46-116) Creatine Kinase 98 U/L (39-308) Troponin I Quantitative < 0.017 ng/mL (0.000-0.055) LT-Fzs-P-Type Natriuretic Peptide 485 pg/mL (0-124) Total Protein 7.3 g/dL (6.4-8.2) Albumin 3.5 g/dL (3.4-5.0) Albumin/Globulin Ratio 0.9 (1.0-1.7) Images Images Ventilation/perfusion lung scan. HISTORY: Recent hip surgery, chest pain, elevated d-dimer, short of breath, history of smoking Ventilation study was done using 10.7 mCi xenon-133. There is mild heterogeneity of the lungs initially which fill in on later images consistent with a history of COPD. Perfusion images were done using 5.5 mCi technetium 99m MAA injected intravenously. There is heterogeneity of the distribution of the MAA although similar to the early phase ventilation images probably related to COPD although small emboli could not be excluded. Due to the COPD this study is indeterminate. CT arteriogram could be of benefit. IMPRESSION: 1. Heterogeneous distribution of the early phase ventilation images and heterogeneity of the perfusion images probably related to COPD. 2. A small pulmonary embolus would be difficult to exclude. 3. Indeterminate for a pulmonary embolus, CT arteriogram may be of benefit. Electronically signed by: Charles Mcarthur MD (06/09/2019 2:58 PM) [id number] DICTATED and SIGNED BY: CHARLES MCARTHUR MD DATE: 06/09/19 1458 VTE Prophylaxis Ordered VTE Prophylaxis Devices: Yes VTE Pharmacological Prophylaxi: Yes Assessment/Plan Assessment/Plan IMPRESSION: 1. Heterogeneous distribution of the early phase ventilation images and heterogeneity of the perfusion images probably related to COPD.V/Q 06/09 2. A small pulmonary embolus// difficult to exclude.ON THIS STUDY 06/09 3. Indeterminate for a pulmonary embolus, CT arteriogram may be of benefit. cr too high tonight, pt is satting wnl will observe 4, hypertensive urgency 5. unstable angina 6. COPD PLAN ADMIT SERIAL TROPONIN I Cardiology consult bp control DVT PROPHYLAXIS LOVENOX 70MG SQ BID EMMANUEL COREY MD Jun 09, 2019 13:46
[2019-06-09] MEDS ORDERED: IOHEXOL 350 MG/ML 100 ML VIAL. IV ONE (14:00)
[2019-06-09] MEDS ORDERED: CONTRAST GIVEN. MC PRN (14:15)
--- NOTE | 2019-06-09 15:24 | RAD ---
Ventilation/perfusion lung scan. HISTORY: Recent hip surgery, chest pain, elevated d-dimer, short of breath, history of smoking Ventilation study was done using 10.7 mCi xenon-133. There is mild heterogeneity of the lungs initially which fill in on later images consistent with a history of COPD. Perfusion images were done using 5.5 mCi technetium 99m MAA injected intravenously. There is heterogeneity of the distribution of the MAA although similar to the early phase ventilation images probably related to COPD although small emboli could not be excluded. Due to the COPD this study is indeterminate. CT arteriogram could be of benefit. IMPRESSION: 1. Heterogeneous distribution of the early phase ventilation images and heterogeneity of the perfusion images probably related to COPD. 2. A small pulmonary embolus would be difficult to exclude. 3. Indeterminate for a pulmonary embolus, CT arteriogram may be of benefit. Electronically signed by: Charles Barroso MD (06/09/2019 2:58 PM) [id number]
[2019-06-09 16:28] LABS: BILIRUBIN,URINE NEGATIVE (NEG); CLARITY,URINE CLEAR; COLOR,URINE YELLOW; NITRITE,URINE NEGATIVE (NEG); PROTEIN,URINE 30 mg/dL (NEG-TRACE); UROBILINOGEN,URINE 0.2 mg/dL (0.2 mg/dL)
[2019-06-09 16:33] LABS: BARBITURATES NEG (NEG); BENZODIAZEPINES NEG (NEG); CANNABINOIDS POS (NEG); COCAINE NEG (NEG); METHADONE NEG (NEG); OPIATES POS (NEG); PHENCYCLIDINE NEG (NEG)
[2019-06-09 16:34] LABS: AMPHETAMINE/METHAMPHETAMINE NEG (NEG)
[2019-06-09 16:38] LABS: BACTERIA,URINE 0 /HPF (0-FEW); SQUAMOUS EPITHELIAL CELL,UR OCC /LPF; WBC,URINE RARE /HPF (0-4)
[2019-06-09 16:54] VITALS: BP 179/117
--- NOTE | 2019-06-09 17:20 | NUR ---
LATE ENTRY The patient, DEANNE SHARMA, 58 y/o, M admitted by EMMANUEL COREY MD, was given written information regarding hospital policies, unit procedures and contact persons. Valuables were checked and left at bedside with patient and . Patient explained that he had right hip replacement surgery late March 2019 in [place] and 2 days later moved to [place] due to a in the family. Patient stated that he never followed up or had physical therapy after surgery because he stayed here in [place]. Patient also stated that once he ran out of medication, he has not taken any for over a month. He said because he has not been able to get a new PCP, he can not get medications prescribed. This RN gave patient and the admission booklet with physicians listed for him to consider. Patient stated that he began having pain at his right groin a few weeks ago and that has been his main complaint since admission. He has been consistently requesting pain medication. This RN advised patient of POC and unit routines until physician is able to see patient at bedside. Patient and verbalized understanding.
[2019-06-09] MEDS ORDERED: ALBUTEROL SULFATE 2.5 MG/3 ML NEBU. INH PRN ×2 (17:30)
[2019-06-09] MEDS: HYDROcodone/APAP 5/325MG 1 TAB TABLET PO PRN (18:00)
[2019-06-09] MEDS ORDERED: TAMS0.4C97 PO (18:19)
[2019-06-09] MEDS ORDERED: ALBU2.5V8 IH (18:19)
[2019-06-09] MEDS ORDERED: AMLO10TA8 PO (18:19)
[2019-06-09] MEDS ORDERED: CLONAZEPAM1 MG PO (18:19)
[2019-06-09] MEDS ORDERED: TRAZ150T49 PO (18:19)
[2019-06-09] MEDS ORDERED: ALBU2.5V8 INH (18:19)
[2019-06-09] MEDS ORDERED: CARV6.2511 PO (18:19)
[2019-06-09] MEDS ORDERED: FERR325T14 PO (18:19)
[2019-06-09] MEDS ORDERED: ASPI325T8 PO (18:19)
[2019-06-09] MEDS ORDERED: ALBU2.5V14 NEB (18:19)
[2019-06-09] MEDS: CARVEDILOL 6.25 MG TABLET. PO SCH (19:08)
[2019-06-09 19:09] VITALS: BP 158/100
[2019-06-09] MEDS: hydroCHLOROthiazide 25 MG TABLET PO SCH (19:09)
[2019-06-09] MEDS: amLODIPine BESYLATE 10 MG TABLET PO SCH (19:09)
[2019-06-09] MEDS: LISINOPRIL 20 MG TABLET PO SCH (19:09)
[2019-06-09] MEDS: ALBUTEROL SULFATE 2.5 MG/3 ML NEBU. NEB SCH ×2 (20:01→23:10)
[2019-06-09] MEDS: clonazePAM 0.5 MG TABLET PO SCH (21:05)
[2019-06-09] MEDS: traZODone 50 MG TABLET. PO SCH (21:05)
[2019-06-09 23:06] VITALS: BP 129/79
[2019-06-10] MEDS: HYDROcodone/APAP 5/325MG 1 TAB TABLET PO PRN ×3 (01:20→17:26)
[2019-06-10] MEDS: ALBUTEROL SULFATE 2.5 MG/3 ML NEBU. NEB SCH ×7 (03:14→23:40)
[2019-06-10 03:49] VITALS: BP 141/104
[2019-06-10 07:00] VITALS: BP 125/85
[2019-06-10] MEDS: amLODIPine BESYLATE 10 MG TABLET PO SCH (08:41)
[2019-06-10] MEDS: FERROUS SULFATE 325 MG TABLET. PO SCH (08:41)
[2019-06-10] MEDS: clonazePAM 0.5 MG TABLET PO SCH ×2 (08:42→21:00)
[2019-06-10] MEDS: hydroCHLOROthiazide 25 MG TABLET PO SCH (08:42)
[2019-06-10] MEDS: LISINOPRIL 20 MG TABLET PO SCH (08:42)
[2019-06-10] MEDS: TAMSULOSIN 0.4 MG CAP.ER.24H. PO SCH (08:42)
[2019-06-10] MEDS: CARVEDILOL 6.25 MG TABLET. PO SCH ×2 (08:42→17:25)
[2019-06-10] MEDS: ASPIRIN 325 MG TABLET PO SCH (08:42)
--- NOTE | 2019-06-10 09:36 | PDOC2 ---
SAMUEL MARTIN [employer]PER[employer]OR 06/10/19 0936: CARDIAC CONSULT DATE OF CONSULT Date of Consult DATE: 06/10/19 TIME: 09:30 REASON FOR CONSULT Reason for Consult: Chest pain REFERRING PHYSICIAN Referring Physician: Dr. Naylor SOURCE Source: Chart review, Patient HISTORY OF PRESENT ILLNESS HISTORY OF PRESENT ILLNESS This is a 58 yo male who presented secondary to chest pain, pressure. Patient reports pain began about 36hrs ago. Located in his left chest. Describes as dull weight initially. Eventually developed in heaviness. Seemed to go through to his back. Was short of breath. No dizziness, diaphoresis, palpitations, or nausea/vomiting. No specific worsening or relieving factors. Pain persisted so he went to the ED for further evaluation and treatment. Also complains of feeling like his head is in a "fish bowl". Feels like there is water in his ears. Additionally c/o right hip and groin pain. Had right hip re placement in [place] in March. Unfortunately, sister the following week and he came to [place] to be with family. He has stayed her and did not get any rehab or establish care with PCP. Ran out of all of his medication about a month and a half ago. Blood pressure significantly elevated upon arrival. Pain improved with nitro in ED. PAST MEDICAL HISTORY Cardiovascular: CAD, HTN, Hyperlipidemia Pulmonary: Asthma, COPD GI: GERD Psych: Anxiety, Bipolar, Depression Musculoskeletal: Osteoarthritis PAST SURGICAL HISTORY Past Surgical History: No pertinent history FAMILY HISTORY Family History: Hypertension SOCIAL HISTORY Smoke: 1 pack per day ALCOHOL: occassional Drugs: Marijuana Lives: with Family CURRENT MEDICATIONS CURRENT MEDICATIONS Current Medications Medications (Trade) Dose Ordered Sig/Melody Route PRN Reason Start Time Stop Time Status Last Admin Dose Admin Aspirin (Children'S Aspirin) 324 mg 1X ONCE PO 06/09/19 11:15 06/09/19 11:16 DC 06/09/19 11:27 Nitroglycerin (Nitrostat) 0.4 mg PRN Q5MIN PRN SL CP RATING > 10 06/09/19 11:15 06/10/19 11:14 06/09/19 11:27 Acetaminophen/ Hydrocodone Bitart (Lortab 5/325) 1 tab 1X ONCE PO 06/09/19 13:15 06/09/19 13:16 DC 06/09/19 13:44 Acetaminophen/ Hydrocodone Bitart (Lortab 5/325) 1 tab PRN Q6HRS PRN PO PAIN 06/09/19 17:30 06/10/19 01:20 Amlodipine Besylate (Norvasc) 10 mg DAILY PO 06/09/19 18:30 06/10/19 08:41 Aspirin (Jorge Luis Aspirin) 325 mg DAILY PO 06/10/19 09:00 06/10/19 08:42 Carvedilol (Coreg) 6.25 mg BIDWMEALS PO 06/09/19 18:30 06/10/19 08:42 Ferrous Sulfate (Feosol) 325 mg DAILY PO 06/10/19 09:00 06/10/19 08:41 Tamsulosin HCl (Flomax) 0.4 mg DAILY PO 06/10/19 09:00 06/10/19 08:42 Albuterol Sulfate (Ventolin Neb Soln) 2.5 mg Q4HRS NEB 06/09/19 20:00 06/10/19 08:11 Clonazepam (KlonoPIN) 1 mg BID PO 06/09/19 21:00 06/10/19 08:42 Lisinopril (Prinivil) 20 mg DAILY PO 06/09/19 18:30 06/10/19 08:42 Trazodone HCl (Desyrel) 150 mg QHS PO 06/09/19 21:00 06/09/19 21:05 Hydrochlorothiazide (Hydrodiuril) 25 mg DAILY PO 06/09/19 18:30 06/10/19 08:42 Enoxaparin Sodium (Lovenox 80mg Syringe) 70 mg Q12HR SQ 06/10/19 09:00 06/10/19 08:47 ALLERGIES ALLERGIES: Coded Allergies: Penicillins (Verified Allergy, Severe, ANAPHYLAXIS, 06/22/17) ROS Review of System 14 point ROS conducted with pertinent positives noted above in hPI PHYSICAL EXAM General: Alert, Oriented X3, Cooperative, No acute distress HEENT: Atraumatic, Mucous membr. moist/pink Lungs: Clear to auscultation, Normal air movement Heart: Regular rate, Normal S1, Normal S2, No murmurs Abdomen: Soft, No tenderness Extremities: No edema, Normal pulses Skin: No significant lesion Neuro: Normal speech, Sensation intact Psych/Mental Status: Mental status NL, Mood NL MUSCULOSKELETAL: Osteoarthritic changes both hands VITALS/I&O VITALS/I&O: Vital Signs Date Time Temp Pulse Resp B/P (MAP) Pulse Ox O2 Delivery O2 Flow Rate FiO2 06/10/19 08:42 87 125/85 06/10/19 08:11 97 Room Air 06/10/19 07:00 98.4 20 98.4 I & O 06/09/19 06/09/19 06/10/19 15:00 23:00 07:00 Intake Total 240 ml 0 ml Output Total 225 ml 225 ml Balance 15 ml -225 ml LABS Lab: Laboratory Tests Test 06/09/19 11:18 06/09/19 16:15 06/09/19 16:55 06/09/19 19:47 White Blood Count 6.8 x10^3/uL (4.0-11.0) Red Blood Count 4.26 x10^6/uL (4.30-5.70) L Hemoglobin 13.6 g/dL (13.0-17.5) Hematocrit 40.5 % (39.0-53.0) Mean Corpuscular Volume 95 fL (79-100) Mean Corpuscular Hemoglobin 32 pg (25-35) Mean Corpuscular Hemoglobin Concent 34 g/dL (31-37) Red Cell Distribution Width 13.4 % (11.5-14.5) Platelet Count 257 x10^3/uL (140-400) Neutrophils (%) (Auto) 74 % (31-73) H Lymphocytes (%) (Auto) 14 % (24-48) L Monocytes (%) (Auto) 10 % (0-9) H Eosinophils (%) (Auto) 1 % (0-3) Basophils (%) (Auto) 1 % (0-3) Neutrophils # (Auto) 5.0 x10^3/uL (1.8-7.7) Lymphocytes # (Auto) 1.0 x10^3/uL (1.0-4.8) Monocytes # (Auto) 0.7 x10^3/uL (0.0-1.1) Eosinophils # (Auto) 0.1 x10^3/uL (0.0-0.7) Basophils # (Auto) 0.1 x10^3/uL (0.0-0.2) Prothrombin Time 13.3 SEC (11.7-14.0) Prothrombin Time INR 1.0 (0.8-1.1) D-Dimer (Rosario) 2.07 ug/mlFEU (0.00-0.50) H Sodium Level 142 mmol/L (136-145) Potassium Level 4.1 mmol/L (3.5-5.1) Chloride Level 104 mmol/L (98-107) Carbon Dioxide Level 31 mmol/L (21-32) Anion Gap 7 (6-14) Blood Urea Nitrogen 30 mg/dL (8-26) H Creatinine 1.4 mg/dL (0.7-1.3) H Estimated GFR (Cockcroft-Gault) 63.4 BUN/Creatinine Ratio 21 (6-20) H Glucose Level 93 mg/dL (70-99) Calcium Level 9.3 mg/dL (8.5-10.1) Magnesium Level 2.0 mg/dL (1.8-2.4) Total Bilirubin 0.3 mg/dL (0.2-1.0) Aspartate Amino Transferase (AST) 18 U/L (15-37) Alanine Aminotransferase (ALT) 16 U/L (16-63) Alkaline Phosphatase 122 U/L (46-116) H Creatine Kinase 98 U/L (39-308) Troponin I Quantitative < 0.017 ng/mL (0.000-0.055) < 0.017 ng/mL (0.000-0.055) < 0.017 ng/mL (0.000-0.055) UX-Jax-S-Type Natriuretic Peptide 485 pg/mL (0-124) H Total Protein 7.3 g/dL (6.4-8.2) Albumin 3.5 g/dL (3.4-5.0) Albumin/Globulin Ratio 0.9 (1.0-1.7) L Urine Collection Type Void Urine Color Yellow Urine Clarity Clear Urine pH 6.0 Urine Specific Bayard 1.020 Urine Protein 30 mg/dL (NEG-TRACE) Urine Glucose (UA) Negative mg/dL (NEG) Urine Ketones (Stick) Negative mg/dL (NEG) Urine Blood Small (NEG) Urine Nitrite Negative (NEG) Urine Bilirubin Negative (NEG) Urine Urobilinogen Dipstick 0.2 mg/dL (0.2 mg/dL) Urine Leukocyte Esterase Negative (NEG) Urine RBC 6-10 /HPF (0-2) Urine WBC Rare /HPF (0-4) Urine Squamous Epithelial Cells Occ /LPF Urine Bacteria 0 /HPF (0-FEW) Urine Opiates Screen Pos (NEG) Urine Methadone Screen Neg (NEG) Urine Barbiturates Neg (NEG) Urine Phencyclidine Screen Neg (NEG) Urine Amphetamine/Methamphetamine Neg (NEG) Urine Benzodiazepines Screen Neg (NEG) Urine Cocaine Screen Neg (NEG) Urine Cannabinoids Screen Pos (NEG) Urine Ethyl Alcohol Neg (NEG) Laboratory Tests 06/09/19 11:18 Laboratory Tests 06/09/19 11:18 ECHOCARDIOGRAM ECHOCARDIOGRAM <Conclusion> The left ventricular systolic function is normal and the ejection fraction is within normal range. The Ejection Fraction is 60-65%. There is normal LV segmental wall motion. No significant valvular disease. DATE: 06/24/17 1219 HEART CATH HEART CATH Findings. Hemodynamics. Left ventricular pressure 150/20, aortic root pressure of 154/92. Coronaries. Left main. The left main was a short vessel with no lesions. Left anterior descending. The LAD was a moderate size vessel. It had a mid 20% lesion. Left circumflex. The left circumflex was a very large dominant vessel with no lesions. Right coronary artery. The right coronary artery is a small nondominant vessel with no lesions. Left ventriculogram. The left ventricle showed normal left ventricular systolic function with an ejection fraction estimated at 55%. Aortic root. The aortic root is mildly enlarged. There was no aortic insufficiency. <Conclusion> Mild single-vessel coronary artery disease. Intact LV systolic function. Mildly enlarged aortic root. DATE: 09/02/17 1252 ASSESSMENT/PLAN ASSESSMENT/PLAN 1. Chest pain, mixed feature. AMI ruled out. Possible related to malignant HTN. 2. CAD; mild, non-obstructive single-vessel disease per cath 2018 as noted above. 3. Malignant hypertension; due to noncompliance. Has been out of all med for the last month and a half. Now well controlled 4. Hyperlipidemia 5. GERD 6. DAVID, ? CKD 7. Recent right hip replacement in [place] 03/2019. Did not get any physical th erapy postoperatively as he had to come to [place] due to in the family. 8. Tobaccoism, marijuana use; discussed/encouraged cessation Recommendations Home antiHTN therapy resumed Hydralazine IV PRN Lipids ASA, statin Echo to assess LV systolic function IF CP recurrent despite adequate BP control, will consider for further ischemic evaluation with [facility] tomorrow. GUIDO ATKINS MD 06/11/19 0931: CARDIAC CONSULT ASSESSMENT/PLAN ASSESSMENT/PLAN Late entry for 06/10/2019. Pt. seen and examined. Agree with above [employer] note. No acute concerns for coronary ischemia. Restart BP meds. If no improvement, consider additional testing, otherwise, supportive care. Thanks SAMUEL MARTIN APRN Jun 10, 2019 09:36 GUIDO ATKINS MD Jun 11, 2019 09:31
[2019-06-10 11:00] VITALS: BP 123/84
[2019-06-10] MEDS ORDERED: PSEUDOEPHEDRINE 30 MG TABLET. PO PRN (11:45)
--- NOTE | 2019-06-10 12:35 | NUR ---
SS following up with discharge planning. SS reviewed pt chart. Pt is from home with spouse and is currently on room air. SS will continue to follow for discharge planning.
--- NOTE | 2019-06-10 13:21 | CARD ---
MR#: [id number] Date of Study: 06/10/2019 Ordering Physician: SAMUEL MARTIN, Referring Physician: SAMUEL MARTIN, Tech: Tatum Bedolla [facility] APPROVED REPORT EXAM: Two-dimensional and M-mode echocardiogram with Doppler and color Doppler. Other Information Quality : AverageHR: 89bpm Rhythm : NSRTechnically limited study due to smoking. INDICATION Chest Pain 2D DIMENSIONS RVDd2.9 (2.9-3.5cm)Left Atrium(2D)3.0 (1.6-4.0cm) IVSd1.5 (0.7-1.1cm)Aortic Root(2D)2.6 (2.0-3.7cm) LVDd4.1 (3.9-5.9cm)LVOT Diameter2.0 (1.8-2.4cm) PWd1.4 (0.7-1.1cm)LVDs3.0 (2.5-4.0cm) FS (%) 26.9 %SV40.3 ml LVEF(%)55.0 (>50%) Aortic Valve AoV Peak Piter.151.6cm/sAoV VTI22.0cm AO Peak GR.9.2mmHgLVOT VTI 16.00cm AO Mean GR.4mmHgAVA (VMAX)2.30cm2 BRADY (VTI)2.50cm2 Mitral Valve MV E Nmxgxecb02.1cm/sMV DECEL [id number] MV A Gwhjvfbu68.3cm/sE/A Ratio0.7 MV A [id number] TDI Lateral E' P. V11.46cm/sMedial E' P. V6.89cm/s E/Lateral E'5.1E/Medial E'8.4 LEFT VENTRICLE The left ventricle is normal size. There is moderate concentric left ventricular hypertrophy. The lef t ventricular systolic function is normal. The Ejection Fraction is 55-60%. There is normal LV segmen rosi wall motion. Transmitral Doppler flow pattern is Grade I-abnormal relaxation pattern. RIGHT VENTRICLE The right ventricle is normal size. There is normal right ventricular wall thickness. The right ventr icular systolic function is normal. ATRIA The left atrium size is normal. The right atrium size is normal. The interatrial septum is intact wit h no evidence for an atrial septal defect or patent foramen ovale as noted on 2-D or Doppler imaging. AORTIC VALVE The aortic valve is thickened but opens well. The aortic valve is trileaflet. Doppler and Color Flow revealed no significant aortic regurgitation. There is no significant aortic valvular stenosis. MITRAL VALVE The mitral valve is normal in structure and function. There is no evidence of mitral valve prolapse. There is no mitral valve stenosis. Doppler and Color-flow revealed trace mitral regurgitation. TRICUSPID VALVE The tricuspid valve is normal in structure and function. Doppler and Color Flow revealed no tricuspid valve regurgitation noted. There is no tricuspid valve prolapse or vegetation. There is no tricuspid valve stenosis. PULMONIC VALVE The pulmonic valve is not well visualized. GREAT VESSELS The aortic root is normal in size. The ascending aorta is normal in size. The IVC is normal in size a nd collapses >50% with inspiration. PERICARDIAL EFFUSION There is no evidence of significant pericardial effusion. Critical Notification Critical Value: No <Conclusion> The left ventricular systolic function is normal. The Ejection Fraction is 55-60%. There is moderate concentric left ventricular hypertrophy. There is normal LV segmental wall motion. Transmitral Doppler flow pattern is Grade I-abnormal relaxation pattern. Doppler and Color-flow revealed trace mitral regurgitation. There is no evidence of significant pericardial effusion. Signed by : Felton Oliveros, Electronically Approved : 06/10/2019 12:40:41
--- NOTE | 2019-06-10 14:09 | PDOC ---
[employer] PROGRESS NOTE Chief Complaint Chief Complaint Chest pain CAD; mild, non-obstructive single-vessel disease per cath 2018 Malignant hypertension; due to noncompliance. Hyperlipidemia GERD DAVID, ? CKD Recent right hip replacement Tobaccoism, marijuana use History of Present Illness History of Present Illness Pt seen and examined alongside his . Discussed case with nursing staff Chart reviewed No acute distress. Pt continues to complain of right hip and groin pain. Pt also says he feels like there is fluid in his R ear and would like us to take a look in his ear. Vitals/I&O Vitals/I&O: Vital Signs Date Time Temp Pulse Resp B/P (MAP) Pulse Ox O2 Delivery O2 Flow Rate FiO2 06/10/19 11:22 96 Room Air 06/10/19 11:00 98.1 98 20 123/84 (97) 98.1 I & O 06/09/19 06/09/19 06/10/19 15:00 23:00 07:00 Intake Total 240 ml 0 ml Output Total 225 ml 225 ml Balance 15 ml -225 ml Physical Exam Physical Exam: General: A&Ox3 in NAD ENT: R TM opaque compared to L. B/l w/out redness or swelling Heart: RRR, no murmur Lungs: CTAB, no wheezes ABD: non tender, +BS, no HSM Ext: no swelling. No redness. General: Alert, Oriented X3, Cooperative, No acute distress Heart: Regular rate, Normal S1, Normal S2, No murmurs Lungs: Clear Abdomen: Soft, No tenderness Extremities: No edema, Normal pulses Skin: No significant lesion Labs Labs: Laboratory Tests Test 06/09/19 16:15 06/09/19 16:55 06/09/19 19:47 Urine Collection Type Void Urine Color Yellow Urine Clarity Clear Urine pH 6.0 Urine Specific [place] 1.020 Urine Protein 30 mg/dL (NEG-TRACE) Urine Glucose (UA) Negative mg/dL (NEG) Urine Ketones (Stick) Negative mg/dL (NEG) Urine Blood Small (NEG) Urine Nitrite Negative (NEG) Urine Bilirubin Negative (NEG) Urine Urobilinogen Dipstick 0.2 mg/dL (0.2 mg/dL) Urine Leukocyte Esterase Negative (NEG) Urine RBC 6-10 /HPF (0-2) Urine WBC Rare /HPF (0-4) Urine Squamous Epithelial Cells Occ /LPF Urine Bacteria 0 /HPF (0-FEW) Urine Opiates Screen Pos (NEG) Urine Methadone Screen Neg (NEG) Urine Barbiturates Neg (NEG) Urine Phencyclidine Screen Neg (NEG) Urine Amphetamine/Methamphetamine Neg (NEG) Urine Benzodiazepines Screen Neg (NEG) Urine Cocaine Screen Neg (NEG) Urine Cannabinoids Screen Pos (NEG) Urine Ethyl Alcohol Neg (NEG) Troponin I Quantitative < 0.017 ng/mL (0.000-0.055) < 0.017 ng/mL (0.000-0.055) Review of Systems Review of Systems: Denies SOA Denies chest pain Reports right hip and groin pain. Assessment and Plan Assessmemt and Plan Problems Medical Problems: (1) Acute chest pain Status: Acute (2) Elevated d-dimer Status: Acute (3) Renal insufficiency Status: Acute Chest pain, mixed feature. AMI ruled out. Possible related to malignant HTN. CAD; mild, non-obstructive single-vessel disease per cath 2018 as noted above. Malignant hypertension; due to noncompliance. Has been out of all med for the last month and a half. Now well controlled Hyperlipidemia GERD Renal Insufficiency Recent right hip replacement in [place] 03/2019. Did not get any physical therapy postoperatively as he had to come to [place] due to in the family. Tobaccoism, marijuana use Plan: -cardiac monitoring -PT/OT -Consult Ortho -Sudafed for ear congestion per pharmacy -Morphine 2mg IV q2hrs PRN for pain -DVT ppx -Full code Comment Review of Relevant I have reviewed the following items bety (where applicable) has been applied. Medications: Current Medications Medications (Trade) Dose Ordered Sig/Melody Route PRN Reason Start Time Stop Time Status Last Admin Dose Admin Acetaminophen/ Hydrocodone Bitart (Lortab 5/325) 1 tab PRN Q6HRS PRN PO PAIN 06/09/19 17:30 06/10/19 08:45 Amlodipine Besylate (Norvasc) 10 mg DAILY PO 06/09/19 18:30 06/10/19 08:41 Aspirin (Jorge Luis Aspirin) 325 mg DAILY PO 06/10/19 09:00 06/10/19 08:42 Carvedilol (Coreg) 6.25 mg BIDWMEALS PO 06/09/19 18:30 06/10/19 08:42 Ferrous Sulfate (Feosol) 325 mg DAILY PO 06/10/19 09:00 06/10/19 08:41 Tamsulosin HCl (Flomax) 0.4 mg DAILY PO 06/10/19 09:00 06/10/19 08:42 Albuterol Sulfate (Ventolin Neb Soln) 2.5 mg Q4HRS NEB 06/09/19 20:00 06/10/19 11:22 Clonazepam (KlonoPIN) 1 mg BID PO 06/09/19 21:00 06/10/19 08:42 Lisinopril (Prinivil) 20 mg DAILY PO 06/09/19 18:30 06/10/19 08:42 Trazodone HCl (Desyrel) 150 mg QHS PO 06/09/19 21:00 06/09/19 21:05 Hydrochlorothiazide (Hydrodiuril) 25 mg DAILY PO 06/09/19 18:30 06/10/19 08:42 Enoxaparin Sodium (Lovenox 80mg Syringe) 70 mg Q12HR SQ 06/10/19 09:00 06/10/19 08:47 AJIT NAZARIO III DO Jun 10, 2019 14:09
[2019-06-10] MEDS: MORPHINE SULFATE 2 MG/ML VIAL. IV PRN ×3 (14:43→22:57)
[2019-06-10 15:00] VITALS: BP 107/65
--- NOTE | 2019-06-10 16:33 | RAD ---
2 view study of the right hip and AP view of the pelvis Clinical indications: Status post right hip replacement. Right hip pain. COMPARISON: Right hip radiographic study dated September 01, 2017. FINDINGS: Since the previous study, the previously seen metallic lateral stabilizer plate within the proximal right femur has been removed. Total right hip arthroplasty has been performed in the interim and is well aligned. The femoral stem is located centrally within the intramedullary canal of the proximal right femur. No acute fracture or lytic process is seen. IMPRESSION: Total right hip arthroplasty. No acute osseous abnormality. Electronically signed by: Gerald Odonnell MD (06/10/2019 4:30 PM) [facility]
[2019-06-10 18:40] VITALS: BP 134/84
[2019-06-10] MEDS ORDERED: ATORVASTATIN CALCIUM 20 MG TABLET PO SCH (21:00)
[2019-06-10] MEDS: traZODone 50 MG TABLET. PO SCH (21:00)
[2019-06-10 23:00] VITALS: BP 127/78
[2019-06-11] MEDS: ALBUTEROL SULFATE 2.5 MG/3 ML NEBU. NEB SCH ×3 (01:41→11:51)
[2019-06-11] MEDS: HYDROcodone/APAP 5/325MG 1 TAB TABLET PO PRN ×2 (02:20→09:32)
[2019-06-11 03:03] VITALS: BP 124/72
[2019-06-11] MEDS: MORPHINE SULFATE 2 MG/ML VIAL. IV PRN ×2 (05:58→11:37)
[2019-06-11 06:40] LABS: C-REACTIVE PROTEIN 1.2 mg/L (0-3.3); CHOLESTEROL/HDL RATIO 2.2
[2019-06-11 07:00] VITALS: BP 127/79
[2019-06-11] MEDS: hydroCHLOROthiazide 25 MG TABLET PO SCH (09:25)
[2019-06-11] MEDS: clonazePAM 0.5 MG TABLET PO SCH (09:25)
[2019-06-11] MEDS: amLODIPine BESYLATE 10 MG TABLET PO SCH (09:26)
[2019-06-11] MEDS: LISINOPRIL 20 MG TABLET PO SCH (09:26)
[2019-06-11] MEDS: CARVEDILOL 6.25 MG TABLET. PO SCH (09:26)
[2019-06-11] MEDS: ASPIRIN 325 MG TABLET PO SCH (09:26)
[2019-06-11] MEDS: TAMSULOSIN 0.4 MG CAP.ER.24H. PO SCH (09:26)
[2019-06-11] MEDS: FERROUS SULFATE 325 MG TABLET. PO SCH (09:28)
[2019-06-11 11:00] VITALS: BP 142/94
--- NOTE | 2019-06-11 12:12 | PDOC ---
[employer] PROGRESS NOTE Chief Complaint Chief Complaint Chest pain CAD; mild, non-obstructive single-vessel disease per cath 2018 Malignant hypertension; due to noncompliance. Hyperlipidemia GERD DAVID, ? CKD Recent right hip replacement Tobaccoism, marijuana use History of Present Illness History of Present Illness Pt seen and examined alongside his . Chart reviewed and care discussed with nursing staff Pt continues to complain of right hip and groin pain. He has no new complaints. He does request refills of all his home medications upon discharge if possible. Vitals/I&O Vitals/I&O: Vital Signs Date Time Temp Pulse Resp B/P (MAP) Pulse Ox O2 Delivery O2 Flow Rate FiO2 06/11/19 11:52 Room Air 06/11/19 11:00 97.2 95 18 142/94 (110) 98 97.2 I & O 06/10/19 06/10/19 06/11/19 15:00 23:00 07:00 Intake Total 480 ml 520 ml 300 ml Output Total 800 ml 275 ml Balance -320 ml 520 ml 25 ml Physical Exam Physical Exam: General: Alert, Oriented X3, Cooperative, No acute distress Heart: Regular rate, Normal S1, Normal S2, No murmurs Lungs: Clear Abdomen: Soft, No tenderness Extremities: No clubbing, No cyanosis, No edema, Normal pulses Skin: No significant lesion Labs Labs: Laboratory Tests Test 06/11/19 05:08 Erythrocyte Sedimentation Rate 8 (0-15) C-Reactive Protein, Quantitative 1.2 mg/L (0-3.3) Triglycerides Level 43 mg/dL (0-150) Cholesterol Level 145 mg/dL (0-200) LDL Cholesterol, Calculated 71 mg/dL (0-100) VLDL Cholesterol, Calculated 9 mg/dL (0-40) Non-HDL Cholesterol Calculated 80 mg/dL (0-129) HDL Cholesterol 65 mg/dL (40-60) Cholesterol/HDL Ratio 2.2 Review of Systems Review of Systems: Denies chest pain Denies SOA Complains of Right groin pain Assessment and Plan Assessmemt and Plan Problems Medical Problems: (1) Acute chest pain Status: Acute (2) Elevated d-dimer Status: Acute (3) Renal insufficiency Status: Acute Chest pain CAD; mild, non-obstructive single-vessel disease per cath 2018 Malignant hypertension; due to noncompliance. Hyperlipidemia GERD DAVID, ? CKD Recent right hip replacement Tobaccoism, marijuana use Plan: -Ortho consulted -Flexeril 10mg PO q8 PRN for spasm -[place] 5/325mg PRN for pain -Continue home medications -Cardiac monitoring -PT/OT -DVT ppx -Discharge if cleared by Ortho -Full code Comment Review of Relevant I have reviewed the following items bety (where applicable) has been applied. Medications: Current Medications Medications (Trade) Dose Ordered Sig/Melody Route PRN Reason Start Time Stop Time Status Last Admin Dose Admin Atorvastatin Calcium (Lipitor) 20 mg QHS PO 06/10/19 21:00 06/10/19 21:00 Morphine Sulfate (Morphine Sulfate) 2 mg PRN Q2HR PRN IV PAIN 06/10/19 13:30 06/11/19 11:37 AJIT NAZARIO III DO Jun 11, 2019 12:12
--- NOTE | 2019-06-11 12:44 | PDOC2 ---
CONSULT Date of Consult Date of Consult DATE: 06/11/19 TIME: 12:40 Reason for Consult Reason for Consult: follow up for right hip replacement done out of state ([place], [place]) Identification/Chief Complaint Chief Complaint right hip pain, recent right hip replacement Source Source: Chart review History of Present Illness Reason for Visit: Patient states he had right hip replacement one month ago and currently is not on anticoagulation. Patient moved from [place] to this area recently and does not have a primary care physician. Patient complaining of right hip pain and asking for pain medication from the moment he presented to ER. Past Medical History Cardiovascular: CAD, HTN, Hyperlipidemia Pulmonary: Asthma, COPD GI: GERD Heme/Onc: No pertinent hx Hepatobiliary: No pertinent hx Psych: Anxiety, Bipolar, Depression Musculoskeletal: Osteoarthritis Renal/: Chronic renal insuff Past Surgical History Past Surgical History: No pertinent history Family History Family History: Hypertension Social History 1 pack per day ALCOHOL: occassional Drugs: Marijuana Lives: with Family Current Problem List Problem List Problems Medical Problems: (1) Acute chest pain Status: Acute (2) Elevated d-dimer Status: Acute (3) Renal insufficiency Status: Acute Current Medications Current Medications Current Medications Aspirin (Children'S Aspirin) 324 mg 1X ONCE PO Last administered on 06/09/19at 11:27; Start 06/09/19 at 11:15; Stop 06/09/19 at 11:16; Status DC Nitroglycerin (Nitrostat) 0.4 mg PRN Q5MIN PRN SL CP RATING > 1/10 Last a dministered on 06/09/19at 11:27; Start 06/09/19 at 11:15; Stop 06/10/19 at 11:14; Status DC Acetaminophen/ Hydrocodone Bitart (Lortab 5/325) 1 tab 1X ONCE PO Last administered on 06/09/19at 13:44; Start 06/09/19 at 13:15; Stop 06/09/19 at 13:16; Status DC Iohexol (Omnipaque 350 Mg/ml) 90 ml 1X ONCE IV ; Start 06/09/19 at 14:00; Stop 06/09/19 at 14:02; Status DC Info (CONTRAST GIVEN -- Rx MONITORING) 1 each PRN DAILY PRN MC SEE COMMENTS; Start 06/09/19 at 14:15; Stop 2/13/20 at 14:14 Acetaminophen/ Hydrocodone Bitart (Lortab 5/325) 1 tab PRN Q6HRS PRN PO PAIN Last administered on 06/11/19 09:32; Start 06/09/19 at 17:30 Albuterol Sulfate (Ventolin Neb Soln) 2.5 mg PRN Q6HRS PRN INH SHORTNESS OF BREATH; Start 06/09/19 at 17:30 Albuterol Sulfate (Ventolin Neb Soln) 2 mg PRN Q6HRS PRN INH wheezing; Start 06/09/19 at 17:30; Status UNV Amlodipine Besylate (Norvasc) 10 mg DAILY PO Last administered on 06/11/19 09:26; Start 06/09/19 at 18:30 Aspirin (Jorge Luis Aspirin) 325 mg DAILY PO Last administered on 06/11/19 09:26; Start 06/10/19 at 09:00 Carvedilol (Coreg) 6.25 mg BIDWMEALS PO Last administered on 06/11/19 09:26; Start 06/09/19 at 18:30 Ferrous Sulfate (Feosol) 325 mg DAILY PO Last administered on 06/11/19 09:28; Start 06/10/19 at 09:00 Tamsulosin HCl (Flomax) 0.4 mg DAILY PO Last administered on 06/11/19 09:26; Start 06/10/19 at 09:00 Albuterol Sulfate (Ventolin Neb Soln) 2.5 mg Q4HRS NEB Last administered on 06/11/19 11:51; Start 06/09/19 at 20:00 Clonazepam (KlonoPIN) 1 mg BID PO Last administered on 06/11/19 09:25; Start 06/09/19 at 21:00 Lisinopril (Prinivil) 20 mg DAILY PO Last administered on 06/11/19 09:26; Start 06/09/19 at 18:30 Trazodone HCl (Desyrel) 150 mg QHS PO Last administered on 06/10/19 21:00; Start 06/09/19 at 21:00 Hydrochlorothiazide (Hydrodiuril) 25 mg DAILY PO Last administered on 06/11/19 09:25; Start 06/09/19 at 18:30 Enoxaparin Sodium (Lovenox 80mg Syringe) 70 mg Q12HR SQ Last administered on 06/11/19at 09:28; Start 06/10/19 at 09:00 Atorvastatin Calcium (Lipitor) 20 mg QHS PO Last administered on 06/10/19at 21:00; Start 06/10/19 at 21:00 Pseudoephedrine HCl (Sudafed) 30 mg PRN Q12HR PRN PO NASAL CONGESTION Last administered on 06/10/19at 14:47; Start 06/10/19 at 11:45 Morphine Sulfate (Morphine Sulfate) 2 mg PRN Q2HR PRN IV PAIN Last administered on 06/11/19at 11:37; Start 06/10/19 at 13:30 Active Scripts Active Lisinopril-Hctz 20-25 Mg Tab (Lisinopril/Hydrochlorothiazide) 1 Each Tablet 1 Tab PO DAILY Carvedilol (Carvedilol) 6.25 Mg Tablet 6.25 Mg PO BIDWMEALS 30 Days Flomax (Tamsulosin Hcl) 0.4 Mg Cap.er.24h 0.4 Mg PO DAILY 30 Days Reported Trazodone Hcl 150 Mg Tablet 150 Mg PO HS Ferrous Sulfate 325 Mg Tablet 325 Mg PO DAILY Clonazepam 1 Mg Tablet 1 Mg PO BID Aspirin 325 Mg Tablet 325 Mg PO DAILY Amlodipine Besylate 10 Mg Tablet 10 Mg PO DAILY Albuterol Sulfate Conc Neb Soln (Albuterol Sulfate) 2.5 Mg/0.5 Ml Vial.neb 2.5 Mg NEB Q4HRS Proair Hfa Inhaler (Albuterol Sulfate) 8.5 Gm Hfa.aer.ad 1 Puff INH PRN Q6HRS PRN Proair Hfa Inhaler (Albuterol Sulfate) 8.5 Gm Hfa.aer.ad 2 Puff IH PRN Q6HRS PRN 21 Days Allergies Allergies: Coded Allergies: Penicillins (Verified Allergy, Severe, ANAPHYLAXIS, 06/22/17) Vitals VITALS Vital Signs Date Time Temp Pulse Resp B/P (MAP) Pulse Ox O2 Delivery O2 Flow Rate FiO2 06/11/19 11:52 Room Air 06/11/19 11:00 97.2 95 18 142/94 (110) 98 97.2 Labs Labs Laboratory Tests Test 06/09/19 16:15 06/09/19 16:55 06/09/19 19:47 06/11/19 05:08 Urine Collection Type Void Urine Color Yellow Urine Clarity Clear Urine pH 6.0 Urine Specific [place] 1.020 Urine Protein 30 mg/dL (NEG-TRACE) Urine Glucose (UA) Negative mg/dL (NEG) Urine Ketones (Stick) Negative mg/dL (NEG) Urine Blood Small (NEG) Urine Nitrite Negative (NEG) Urine Bilirubin Negative (NEG) Urine Urobilinogen Dipstick 0.2 mg/dL (0.2 mg/dL) Urine Leukocyte Esterase Negative (NEG) Urine RBC 6-10 /HPF (0-2) Urine WBC Rare /HPF (0-4) Urine Squamous Epithelial Cells Occ /LPF Urine Bacteria 0 /HPF (0-FEW) Urine Opiates Screen Pos (NEG) Urine Methadone Screen Neg (NEG) Urine Barbiturates Neg (NEG) Urine Phencyclidine Screen Neg (NEG) Urine Amphetamine/Methamphetamine Neg (NEG) Urine Benzodiazepines Screen Neg (NEG) Urine Cocaine Screen Neg (NEG) Urine Cannabinoids Screen Pos (NEG) Urine Ethyl Alcohol Neg (NEG) Troponin I Quantitative < 0.017 ng/mL (0.000-0.055) < 0.017 ng/mL (0.000-0.055) Erythrocyte Sedimentation Rate 8 (0-15) C-Reactive Protein, Quantitative 1.2 mg/L (0-3.3) Triglycerides Level 43 mg/dL (0-150) Cholesterol Level 145 mg/dL (0-200) LDL Cholesterol, Calculated 71 mg/dL (0-100) VLDL Cholesterol, Calculated 9 mg/dL (0-40) Non-HDL Cholesterol Calculated 80 mg/dL (0-129) HDL Cholesterol 65 mg/dL (40-60) Cholesterol/HDL Ratio 2.2 Laboratory Tests Test 06/11/19 05:08 Erythrocyte Sedimentation Rate 8 (0-15) C-Reactive Protein, Quantitative 1.2 mg/L (0-3.3) Triglycerides Level 43 mg/dL (0-150) Cholesterol Level 145 mg/dL (0-200) LDL Cholesterol, Calculated 71 mg/dL (0-100) VLDL Cholesterol, Calculated 9 mg/dL (0-40) Non-HDL Cholesterol Calculated 80 mg/dL (0-129) HDL Cholesterol 65 mg/dL (40-60) Cholesterol/HDL Ratio 2.2 Images Images Report reviewed, images independently reviewed. Right hip replacement in place with evidence of additional prior proximal femur surgeries. Well-aligned modular uncemented prosthesis (I believe this is a Octavio S-ROM prosthesis). No apparent complications. Probable acetabular bone graft and screw along with uncemented acetabular prosthesis. Everything appears well-positioned without loosening or other apparent complications. [facility] [address] [place] [address] IMAGING REPORT Signed PATIENT: DEANNE SHARMA ACCOUNT: [id number] : 1960 LOCATION: [address] [place] [address] AGE: 58 SEX: M EXAM STATUS: ADM IN ORD. PHYSICIAN: MELYSSA JHAVERI MD REASON: right hip pain s/p hip replacement PROCEDURE: HIP RIGHT 2V WITH PELVIS 2 view study of the right hip and AP view of the pelvis Clinical indications: Status post right hip replacement. Right hip pain. COMPARISON: Right hip radiographic study dated September 01, 2017. FINDINGS: Since the previous study, the previously seen metallic lateral stabilizer plate within the proximal right femur has been removed. Total right hip arthroplasty has been performed in the interim and is well aligned. The femoral stem is located centrally within the intramedullary canal of the proximal right femur. No acute fracture or lytic process is seen. IMPRESSION: Total right hip arthroplasty. No acute osseous abnormality. Electronically signed by: Gerald Odonnell MD (06/10/2019 4:30 PM) [facility] DICTATED and SIGNED BY: GERALD ODONNELL MD DATE: 06/10/19 163 I also reviewed his films from 08/2017 which showed likely evidence of prior PFO with retained hardware. [facility] [address] [place] [address] IMAGING REPORT Signed PATIENT: DEANNE SHARMA ACCOUNT: [id number] : 1960 LOCATION: [address] [facility] AGE: 56 SEX: M EXAM STATUS: ADM IN ORD. PHYSICIAN: RAO PUTNAM MD REASON: chroinc right hip pain, prior surg PROCEDURE: HIP RIGHT 2 VIEW History: Chronic right hip pain, prior surgery. Comparison: None. Findings: AP and frog-leg views of the right hip. Proximal right femur demonstrates presence of a lateral buttress plate and multiple interlocking screws. The lateral buttress plate appears chronically bent/angulated. The right femoral head demonstrates irregular sclerosis and subchondral cyst formation as well as markedly irregular shape and flattening, compatible with severe chronic degeneration. Impression: 1. 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 2. Posttraumatic and postsurgical changes. Electronically signed by: Miguel Craig MD (09/01/2017 12:56 PM) [facility] DICTATED and SIGNED BY: MIGUEL CRAIG MD DATE: 09/01/17 1253 Assessment/Plan Assessment/Plan 2019 ICD-10-CM Diagnosis Code Z96.641 Presence of right artificial hip joint MELYSSA JHAVERI MD Jun 11, 2019 12:44
--- NOTE | 2019-06-11 13:22 | PDOC ---
CARDIO Progress Notes Date and Time Date of Service 06/11/19 Time of Evaluation 1310 Subjective Subjective: No Chest Pain, No shortness of breath, No Palpitations, No Dizziness Vitals Vitals Vital Signs Date Time Temp Pulse Resp B/P (MAP) Pulse Ox O2 Delivery O2 Flow Rate FiO2 06/11/19 11:52 Room Air 06/11/19 11:00 97.2 95 18 142/94 (110) 98 97.2 Weight Weight [ ] Input and Output Intake and Output l Intake and Output 06/11/19 07:00 Intake Total 1300 ml Output Total 1075 ml Balance 225 ml Intake Oral 1300 ml Output Urine Total 1075 ml Laboratory Labs Laboratory Tests Test 06/11/19 05:08 Erythrocyte Sedimentation Rate 8 (0-15) C-Reactive Protein, Quantitative 1.2 mg/L (0-3.3) Triglycerides Level 43 mg/dL (0-150) Cholesterol Level 145 mg/dL (0-200) LDL Cholesterol, Calculated 71 mg/dL (0-100) VLDL Cholesterol, Calculated 9 mg/dL (0-40) Non-HDL Cholesterol Calculated 80 mg/dL (0-129) HDL Cholesterol 65 mg/dL (40-60) Cholesterol/HDL Ratio 2.2 Physical Exam HEENT: Neck Supple W Full Motion Chest: Symmetric LUNGS: Clear to Auscultation Heart: RRR, no thrills Abdomen: Soft N/T Extremities: No Edema Neurology: alert, oriented, follow commands Assessment Assessment 1. Chest pain, mixed feature. AMI ruled out. Most like related to malignant HTN secondary to noncompliance with medical therapy. Echo with preserved LV systolic function 2. CAD; mild, non-obstructive single-vessel disease per cath 2017. 3. Malignant hypertension; now controlled 4. Hyperlipidemia 5. GERD 6. DAVID, ? CKD 7. Recent right hip replacement 03/2019 8. Tobaccoism, marijuana use; discussed/encouraged cessation Recommendations Continue current antiHTN therapy ASA, statin May discharge from a CV standpoint If CP recurrent, consider outpatient ischemic evaluation May discharge from our standpoint and f/u in our office with Dr. Knapp as scheduled SAMUEL MARTIN APRN Jun 11, 2019 13:22
[2019-06-11] MEDS ORDERED: ALPR0.5T PO (14:10)
--- NOTE | 2019-06-11 15:18 | NUR ---
Discharge Note: DEANNE SHARMA Discharge instructions and discharge home medications reviewed with Patient and a copy given. All questions have been answered and understanding verbalized. The following instructions and handouts were given: FOLLOW UP APPOINTMENTS WITH CARDIOLOGY AND ORTHO, HANDWRITTEN PRESCRIPTIONS, PHYSICAL THERAPY EDUCATION AND FOLLOW UP. ADVISED PATIENT TO CONNECT WITH A PCP SOON TO CONTINUE CARE AND REFILL PERTINENT PRESCRIPTIONS. Discontinued lines and drains: PERIPHERAL IV, DRESSING CLEAN, DRY AND intact. Patient discharged to HOME withSPOUSE via WHEELCHAIR.
--- NOTE | 2019-06-11 18:27 | NUR ---
At [facility] called nurses station after discharge stating that he is at the pharmacy and can not get his prescription for pain medication without prior authorization. The prescription was electronically send to the pharmacy by the ortho doctor. Patient was very upset and demanding that we "do something now". I spoke to the pharmacist to verify what was needed and paged the doctor through the answering service to call the pharmacy directly. Pharmacist stated that they also sent a fax to the doctors office. I also advised that per the copies in the chart, the patient was given a written prescription for [place] and Flexeril to manage his pain and should use that in the meantime until this matter is handled. I advised patient that multiple calls to the nurses station and pharmacy will not speed up this process. Patient verbalized understanding
== END 2019-06-11 15:00 | disposition home or self-care (01) ==
LOC: ER 10:31 → ED HOLD 13:06 → 2 NORTH 16:31
PROVIDERS: ADMIT Family Medicine; ATTEND Family Medicine
DX: I26.99 Other pulmonary embolism without acute cor pulmonale (principal); I20.0 Unstable angina; R74.8 Abnormal levels of other serum enzymes; N28.9 Disorder of kidney and ureter, unspecified; J44.9 Chronic obstructive pulmonary disease, unspecified; F41.9 Anxiety disorder, unspecified; J45.909 Unspecified asthma, uncomplicated; F31.9 Bipolar disorder, unspecified; E78.00 Pure hypercholesterolemia, unspecified; I51.9 Heart disease, unspecified; I10 Essential (primary) hypertension; F17.210 Nicotine dependence, cigarettes, uncomplicated; Z96.641 Presence of right artificial hip joint; Z95.1 Presence of aortocoronary bypass graft; Z98.890 Other specified postprocedural states; Z79.82 Long term (current) use of aspirin
CPT/HCPCS: 36415; 71045; 73502; 78582; 80053; 80061; 80307; 81001; 82550; 83735; 83880; 84484; 85025; 85379; 85610; 85651; 86140; 93005; 93306; 94640; 96372; 96374; 96376; 97116; 97162; 97166; 97535; 99285; A9540; A9558; G0378; J1650; J2270; J7613; G0379

== ENCOUNTER 2019-08-03 09:45 | Inpatient (IN) | payer MEDICAID ==
[~2019-08-03] VITALS: Ht 180.3 cm; Wt 71.1 kg
[~2019-08-03 09:45] MED LIST changes: +ALBU2.5V14 NEB; +ALBU2.5V8 IH; +ALBU2.5V8 INH; +ALPR0.5T PO; +AMLO10TA8 PO; +ASPI325T8 PO; +CLIN300C8 PO; +CLONAZEPAM1 MG PO; +FERR325T14 PO; +TRAZ150T49 PO
[2019-08-03] MEDS ORDERED: IV NORMAL SALINE 1000ML BAG 1,000 ML IV SCH (10:17)
[2019-08-03] MEDS ORDERED: IV NORMAL SALINE 1000ML BAG 1,000 ML IV ONE (10:30)
[2019-08-03] MEDS ORDERED: ALBUTEROL SULFATE 2.5 MG/3 ML NEBU. CONT NEB ONE (10:30)
[2019-08-03] MEDS ORDERED: NITROGLYCERIN SUBLINGUAL 0.4 MG BOTTLE OF 25. SL PRN (10:30)
[2019-08-03] MEDS ORDERED: ASPIRIN 325 MG TABLET PO ONE (10:30)
[2019-08-03] MEDS ORDERED: methylPREDNISolone SOD SUCC PF 125 MG/2 ML VIAL. IV ONE (10:30)
--- NOTE | 2019-08-03 10:31 | PHYS DOC ---
Past Medical History Past Medical History: Anxiety, Asthma, Bipolar, COPD, Depression, DVT, High Cholesterol, Heart Disease, Hypertension Past Surgical History: Angioplasty, Hip Replacement, Other Additional Past Surgical Histo: Cardiac stent, R HIP REPL Smoking Status: Current Every Day Smoker Alcohol Use: Occasionally Drug Use: Marijuana Adult General Chief Complaint Chief Complaint: SHORTNESS OF BREATH HPI HPI Patient is a 58 year old male who presents with left-sided sharp chest pain that will radiate to the back at times for the last 3 days. He states increased shortness of breath especially with exertion. His biggest complaint is the increase short of this of breath with exertion and he states yesterday he was trying to carry some groceries up the stairs and he had a stop and sit down. He states he has been out of his blood pressure medications for the last couple of days. He is hypertensive. He complains of a headache that is generalized and causing and at times to have blurred vision. He states he took a baby aspirin this morning. Rates his pain a 10 out of 10. Review of Systems Review of Systems Respiratory: Denies cough. +shortness of breath [] Cardiovascular: Left chest pain GI: Denies abdominal pain, nausea, vomiting, bloody stools or diarrhea. Decreased Appetite [] Neurologic: Generalized headache with blurred vision. Denies focal weakness or sensory changes [] All other systems were reviewed and found to be within normal limits, except as documented in this note. Current Medications Current Medications Current Medications Medications (Trade) Dose Ordered Sig/Melody Start Time Stop Time Status Last Admin Dose Admin Albuterol Sulfate (Ventolin Neb Soln) 10 mg 1X ONCE 08/03/19 10:30 08/03/19 10:31 DC 08/03/19 10:55 10 MG Aspirin (Jorge Luis Aspirin) 325 mg 1X ONCE 08/03/19 10:30 08/03/19 10:31 DC 08/03/19 10:31 325 MG Fentanyl Citrate (Fentanyl 2ml Vial) 50 mcg 1X ONCE 08/03/19 11:00 08/03/19 11:01 DC 08/03/19 11:04 50 MCG Hydralazine HCl (Apresoline Inj) 20 mg PRN Q4HRS PRN 08/03/19 14:00 UNV Ketorolac Tromethamine (Toradol 30mg Vial) 30 mg 1X ONCE 08/03/19 14:00 08/03/19 14:01 UNV Methylprednisolone Sodium Succinate (SOLU-Medrol 125MG VIAL) 125 mg 1X ONCE 08/03/19 10:30 08/03/19 10:31 DC 08/03/19 10:28 125 MG Metoprolol Tartrate (Lopressor Vial) 5 mg 1X ONCE 08/03/19 11:15 08/03/19 11:16 DC 08/03/19 11:08 5 MG Morphine Sulfate (Morphine Sulfate) 4 mg 1X ONCE 08/03/19 12:15 08/03/19 12:16 DC 08/03/19 12:22 4 MG Nitroglycerin (Nitrostat) 0.4 mg PRN Q5MIN PRN 08/03/19 10:30 08/03/19 10:31 0.4 MG Prochlorperazine Edisylate (Compazine) 10 mg 1X ONCE 08/03/19 14:00 08/03/19 14:01 UNV Sodium Chloride 1,000 ml @ 1,000 mls/hr 1X ONCE 08/03/19 10:30 08/03/19 11:29 DC Allergies Allergies Allergies Coded Allergies Type Severity Reaction Last Updated Verified Penicillins Allergy Severe ANAPHYLAXIS 06/22/17 Yes Physical Exam Physical Exam Constitutional: Well developed, well nourished, no acute distress, non-toxic appearance. [] HENT: Normocephalic, atraumatic, bilateral external ears normal, oropharynx moist, no oral exudates, nose normal. [] Eyes: PERRLA, EOMI, conjunctiva normal, no discharge. [] Neck: Normal range of motion, no tenderness, supple, no stridor. [] Cardiovascular:Heart rate regular rhythm, no murmur [] Lungs & Thorax: Bilateral breath sounds diminished to auscultation [] Abdomen: Bowel sounds normal, soft, no tenderness, no masses, no pulsatile masses. [] Skin: Warm, dry, no erythema, no rash. [] Back: No tenderness, no CVA tenderness. [] Extremities: No tenderness, no cyanosis, no clubbing, ROM intact, no edema. [] Neurologic: Alert and oriented X 3, normal motor function, normal sensory function, no focal deficits noted. [] Psychologic: Affect normal, judgement normal, mood normal. [] Current Patient Data Vital Signs Vital Signs Date Time Temp Pulse Resp B/P (MAP) Pulse Ox O2 Delivery O2 Flow Rate FiO2 08/03/19 13:35 63 16 169/101 (123) 97 Room Air 08/03/19 09:47 98.6 98.6 Lab Values Laboratory Tests Test 08/03/19 10:16 08/03/19 10:34 08/03/19 11:00 08/03/19 11:15 Sodium Level 138 mmol/L (136-145) Potassium Level 4.4 mmol/L (3.5-5.1) Chloride Level 100 mmol/L (98-107) Carbon Dioxide Level 33 mmol/L (21-32) H Anion Gap 5 (6-14) L Blood Urea Nitrogen 19 mg/dL (8-26) Creatinine 1.2 mg/dL (0.7-1.3) Estimated GFR (Cockcroft-Gault) 75.8 BUN/Creatinine Ratio 16 (6-20) Glucose Level 90 mg/dL (70-99) Calcium Level 9.2 mg/dL (8.5-10.1) Total Bilirubin 0.4 mg/dL (0.2-1.0) Aspartate Amino Transferase (AST) 30 U/L (15-37) Alanine Aminotransferase (ALT) 23 U/L (16-63) Alkaline Phosphatase 120 U/L (46-116) H Troponin I Quantitative < 0.017 ng/mL (0.000-0.055) TD-Cyv-T-Type Natriuretic Peptide 388 pg/mL (0-124) H Total Protein 7.6 g/dL (6.4-8.2) Albumin 3.4 g/dL (3.4-5.0) Albumin/Globulin Ratio 0.8 (1.0-1.7) L Influenza Type A Antigen Negative (NEGATIVE) Influenza Type B Antigen Negative (NEGATIVE) Urine Collection Type Unknown Urine Color Yellow Urine Clarity Clear Urine pH 7.5 (<5.0-8.0) Urine Specific [place] 1.015 (1.000-1.030) Urine Protein 100 mg/dL (NEG-TRACE) Urine Glucose (UA) Negative mg/dL (NEG) Urine Ketones (Stick) Negative mg/dL (NEG) Urine Blood Negative (NEG) Urine Nitrite Negative (NEG) Urine Bilirubin Negative (NEG) Urine Urobilinogen Dipstick 0.2 mg/dL (0.2 mg/dL) Urine Leukocyte Esterase Negative (NEG) Urine RBC 3-5 /HPF (0-2) Urine WBC 0 /HPF (0-4) Urine Bacteria 0 /HPF (0-FEW) White Blood Count 4.2 x10^3/uL (4.0-11.0) Red Blood Count 4.38 x10^6/uL (4.30-5.70) Hemoglobin 13.5 g/dL (13.0-17.5) Hematocrit 40.2 % (39.0-53.0) Mean Corpuscular Volume 92 fL (79-100) Mean Corpuscular Hemoglobin 31 pg (25-35) Mean Corpuscular Hemoglobin Concent 34 g/dL (31-37) Red Cell Distribution Width 14.9 % (11.5-14.5) H Platelet Count 205 x10^3/uL (140-400) Neutrophils (%) (Auto) 70 % (31-73) Lymphocytes (%) (Auto) 18 % (24-48) L Monocytes (%) (Auto) 11 % (0-9) H Eosinophils (%) (Auto) 1 % (0-3) Basophils (%) (Auto) 1 % (0-3) Neutrophils # (Auto) 2.9 x10^3/uL (1.8-7.7) Lymphocytes # (Auto) 0.8 x10^3/uL (1.0-4.8) L Monocytes # (Auto) 0.4 x10^3/uL (0.0-1.1) Eosinophils # (Auto) 0.0 x10^3/uL (0.0-0.7) Basophils # (Auto) 0.0 x10^3/uL (0.0-0.2) Laboratory Tests 08/03/19 11:15 Laboratory Tests 08/03/19 10:16 EKG EKG Sinus Rhythm and no STEMI[] Interpretation Time: [address] Knight Radiology/Procedures Radiology/Procedures [] Impressions: [facility] [address] [place] [address] IMAGING REPORT Signed PATIENT: DEANNE SHARMA ACCOUNT: [id number] : 1960 LOCATION: ER AGE: 58 SEX: M EXAM STATUS: REG ER ORD. PHYSICIAN: KEESHA HUYNH APRN REASON: soa PROCEDURE: PORTABLE CHEST 1V PORTABLE CHEST 1V History: Shortness of breath Comparison: July 03, 2019 chest x-ray and CT. Findings: Hyperinflation with emphysematous changes. No new consolidation. No pleural effusion. No pneumothorax. Normal heart size. Impression: 1. Hyperinflation with emphysematous changes. No new consolidation. Electronically signed by: Inocencio Greenberg DO (08/03/2019 10:53 AM) [id number] DICTATED and SIGNED BY: INOCENCIO GREENBERG DO DATE: 08/03/19 1053 [facility] [address] [facility] [place] [address] IMAGING REPORT Signed PATIENT: DEANNE SHARMA ACCOUNT: [id number] : 1960 LOCATION: ER AGE: 58 SEX: M EXAM STATUS: REG ER ORD. PHYSICIAN: KEESHA HUYNH APRN REASON: headache PROCEDURE: CT HEAD WO CONTRAST CT HEAD WO CONTRAST Date: 08/03/2019 10:28 AM Clinical Indication: Headache Comparison: None. Technique: 5 mm axial tomographic images were obtained of the head without contrast. These were viewed on brain and bone windows. One or more of the following dose reduction techniques were utilized: Automated exposure control (AEC), Adjustment of mA and/or kV according to patient size, Use of iterative reconstruction technique such as ASiR, CT scan done according to ALARA and image gently/image wisely Findings: The brain parenchyma is normal in attenuation. No intra- or extra-axial mass or fluid collection. No acute hemorrhage. The ventricles are normal in size, shape, and morphology. The meyer-white matter junction is normal. The subarachnoid cisterns are patent. The visualized paranasal sinuses are normal. The visualized portions of the orbits and globes are normal. The mastoid air cells are clear. The aircraft engineer topogram shows no lytic lesion or fracture. Impression: No acute intracranial process. Electronically signed by: Felipe Mejia MD (08/03/2019 11:00 AM) [id number] DICTATED and SIGNED BY: FELIPE MEJIA MD DATE: 08/03/19 1100 Course & Med Decision Making Course & Med Decision Making Pertinent Labs and Imaging studies reviewed. (See chart for details) Lungs are diminished throughout. Speaks in full clear sentences. Alert and o riented. PERRLA. Denies numbness or tingling, abdominal pain, nausea, vomiting, diarrhea, fever, cough, dizziness, syncope, focal weakness. No extremity swelling. Skin pink warm and dry. He is afebrile. Patient has a history of COPD, hypertension, high cholesterol, heart disease, cardiac stents, DVT, bipolar, anxiety. Patient states he does not have any inhalers at home. He states that he lives with his daughter and several teenagers that come and go but he has been staying at home as much as possible. He states that he has not been rounding by else that is sick that he knows of. Ambulatory with steady gait. Moves all extremities with normal strength, ROM. Patient is given sublingual Nitro and states that it made his chest feel slightly better but making his headache worse. Patient is still HTN after nitro. Patient is given 5mg Lopressor IV. Patient remains hypertensive at 221/111. Patient is given Hydralazine 20mg. I have spoken to Dr De Jesus and he states that I can get the patients hypertension under control than the patient can go home instead of admission. The patients Heart score is a 4. Patient still complains of headache at a 10/10 after Fentanyl. I have ordered 4mg Morphine. Chest xray does not show pneumonia. Patient states his he still has a dull pain in his chest. After Hydralazine given patients chest pain has come down to 169/101. He states he still has a headache of a 10/10. He states he still has chest pressure. I have now ordered Compazine and Toradol. Patient is admitted per Dr Shafer. [] Aniyah Disclaimer Dragon Disclaimer This electronic medical record was generated, in whole or in part, using a voice recognition dictation system. The HEART Score for CP Pts HEART Score for Chest Pain: HEART Score for Chest Pain Response (Comments) Value History Moderately Suspicious 1 ECG Normal 0 Age >45 - < 65 1 Risk Factors >3 Risk Factors or Hx CAD 2 Troponin < Normal Limit 0 Total 4 Risk Factors: Risk Factors: DM, Current or recent (<one month) smoker, HTN, HLP, family history of CAD, obesity. Risk Scores: Score 0 - 3: 2.5% MACE over next 6 weeks - Discharge Home Score 4 - 6: 20.3% MACE over next 6 weeks - Admit for Clinical Observation Score 7 - 10: 72.7% MACE over next 6 weeks - Early Invasive Strategies Departure Departure Impression: Primary Impression: Chest pain Additional Impression: Hypertension Disposition: ADMITTED INPATIENT Admitting Physician: VIRGILIO Condition: STABLE Referrals: UNKNOWN PCP NAME (PCP) Problem Qualifiers Primary Impression: Chest pain Chest pain type: unspecified Qualified Codes: R07.9 - Chest pain, unspecified Additional Impression: Hypertension Hypertension type: unspecified Qualified Codes: I10 - Essential (primary) hypertension KEESHA HUYNH MISCELLANEOUS MACHINE OPERATOR Aug 03, 2019 10:31
[2019-08-03 10:48] LABS: CALCIUM 9.2 mg/dL (8.5-10.1); CREATININE 1.2 mg/dL (0.7-1.3); GFR 75.8
[2019-08-03 10:53] LABS: ALBUMIN 3.4 g/dL (3.4-5.0); ALBUMIN/GLOBULIN RATIO 0.8 (1.0-1.7); TOTAL BILIRUBIN 0.4 mg/dL (0.2-1.0); TOTAL PROTEIN 7.6 g/dL (6.4-8.2)
[2019-08-03 10:56] LABS: POTASSIUM 4.4 mmol/L (3.5-5.1)
--- NOTE | 2019-08-03 10:56 | RAD ---
PORTABLE CHEST 1V History: Shortness of breath Comparison: July 03, 2019 chest x-ray and CT. Findings: Hyperinflation with emphysematous changes. No new consolidation. No pleural effusion. No pneumothorax. Normal heart size. Impression: 1. Hyperinflation with emphysematous changes. No new consolidation. Electronically signed by: Inocencio Greenberg DO (08/03/2019 10:53 AM) [id number]
[2019-08-03] MEDS ORDERED: fentaNYL PF VIAL 100 MCG/2 ML VIAL IVP ONE (11:00)
[2019-08-03] MEDS ORDERED: METOPROLOL TARTRATE 5 MG/5 ML VIAL. IVP ONE ×2 (11:03→11:15)
--- NOTE | 2019-08-03 11:04 | RAD ---
CT HEAD WO CONTRAST Date: 08/03/2019 10:28 AM Clinical Indication: Headache Comparison: None. Technique: 5 mm axial tomographic images were obtained of the head without contrast. These were viewed on brain and bone windows. One or more of the following dose reduction techniques were utilized: Automated exposure control (AEC), Adjustment of mA and/or kV according to patient size, Use of iterative reconstruction technique such as ASiR, CT scan done according to ALARA and image gently/image wisely Findings: The brain parenchyma is normal in attenuation. No intra- or extra-axial mass or fluid collection. No acute hemorrhage. The ventricles are normal in size, shape, and morphology. The meyer-white matter junction is normal. The subarachnoid cisterns are patent. The visualized paranasal sinuses are normal. The visualized portions of the orbits and globes are normal. The mastoid air cells are clear. The gericare aide teacher topogram shows no lytic lesion or fracture. Impression: No acute intracranial process. Electronically signed by: Adrián Alfredo MD (08/03/2019 11:00 AM) [id number]
[2019-08-03 11:05] LABS: INFLUENZA A PATIENT NEGATIVE (NEGATIVE); INFLUENZA B PATIENT NEGATIVE (NEGATIVE)
--- NOTE | 2019-08-03 11:20 | EKG ---
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 Electronically Signed On 08-04-2019 9:36:47 CDT by Ted Barrientos
[2019-08-03 11:23] LABS: BILIRUBIN,URINE NEGATIVE (NEG); CLARITY,URINE CLEAR; COLOR,URINE YELLOW; NITRITE,URINE NEGATIVE (NEG); PH,URINE 7.5 (<5.0-8.0); PROTEIN,URINE 100 mg/dL (NEG-TRACE); UROBILINOGEN,URINE 0.2 mg/dL (0.2 mg/dL)
[2019-08-03 11:34] LABS: BASO % 1 % (0-3); EOS % 1 % (0-3); HEMATOCRIT 40.2 % (39.0-53.0); HEMOGLOBIN 13.5 g/dL (13.0-17.5); LYMPH # 0.8 x10^3/uL (1.0-4.8); LYMPH % 18 % (24-48); MEAN CORPUSCULAR HEMOGLOBIN 31 pg (25-35); MEAN CORPUSCULAR HGB CONC 34 g/dL (31-37); MEAN CORPUSCULAR VOLUME 92 fL (79-100); MONO # 0.4 x10^3/uL (0.0-1.1); MONO % 11 % (0-9); NEUT # 2.9 x10^3/uL (1.8-7.7); NEUT % 70 % (31-73); PLATELET COUNT 205 x10^3/uL (140-400); RED BLOOD COUNT 4.38 x10^6/uL (4.30-5.70); RED CELL DISTRIBUTION WIDTH 14.9 % (11.5-14.5); WHITE BLOOD COUNT 4.2 x10^3/uL (4.0-11.0)
[2019-08-03 11:41] LABS: BACTERIA,URINE 0 /HPF (0-FEW); WBC,URINE 0 /HPF (0-4)
[2019-08-03] MEDS ORDERED: MORPHINE SULFATE 4 MG/ML VIAL. IV ONE (12:15)
[2019-08-03] MEDS ORDERED: hydrALAZINE 20 MG/ML VIAL. IVP ONE (12:30)
--- NOTE | 2019-08-03 13:57 | PDOC1 ---
History and Physical Date of Admission Date of Admission DATE: 08/03/19 TIME: 13:57 Identification/Chief Complaint Chief Complaint seen in er , 58 year old male who presented with left-sided sharp chest pain that will radiate to the back at times for the last 3 days. He states increased shortness of breath especially with exertion. His biggest complaint is the increase short of this of breath with exertion and he states yesterday he was trying to carry some groceries up the stairs and he had a stop and sit down. He states he has been out of his blood pressure medications for the last several weeks c/o HARDY, upper back pain, chest pressure, // difficulty to take a deep breath. no fever or deep cough, no flu like symptoms Past Medical History Past Medical History Past Medical History Past Medical History Past Medical History: Anxiety, Asthma, Bipolar, COPD, Depression, DVT, High Cholesterol, Heart Disease, Hypertension Past Surgical History: Angioplasty, Hip Replacement, Other Additional Past Surgical Histo: Cardiac stent, R HIP REPL Smoking Status: Current Every Day Smoker Alcohol Use: Occasionally Drug Use: Marijuana Cardiovascular: CAD, HTN, Hyperlipidemia Pulmonary: Asthma, COPD GI: GERD Heme/Onc: No pertinent hx Hepatobiliary: No pertinent hx Psych: Anxiety, Bipolar, Depression Musculoskeletal: Osteoarthritis Renal/: Chronic renal insuff Past Surgical History Past Surgical History: No pertinent history Family History Family History: Hypertension Social History Smoke: <1 pack per day ALCOHOL: occassional Drugs: Marijuana Current Problem List Problem List Problems Medical Problems: (1) Chest pain Status: Acute (2) Hypertension Status: Acute Current Medications Current Medications Current Medications Sodium Chloride 1,000 ml @ 1,000 mls/hr Q1H IV Last administered on 08/03/19at 10:28; Start 08/03/19 at 10:17; Stop 08/03/19 at 11:16; Status DC Methylprednisolone Sodium Succinate (SOLU-Medrol 125MG VIAL) 125 mg 1X ONCE IV Last administered on 08/03/19at 10:28; Start 08/03/19 at 10:30; Stop 08/03/19 at 10:31; Status DC Sodium Chloride 1,000 ml @ 1,000 mls/hr 1X ONCE IV ; Start 08/03/19 at 10:30; Stop 08/03/19 at 11:29; Status DC Nitroglycerin (Nitrostat) 0.4 mg PRN Q5MIN PRN SL CHEST PAIN Last administered on 08/03/19at 10:31; Start 08/03/19 at 10:30 Albuterol Sulfate (Ventolin Neb Soln) 10 mg 1X ONCE CONT NEB Last administered on 08/03/19at 10:55; Start 08/03/19 at 10:30; Stop 08/03/19 at 10:31; Status DC Aspirin (Jorge Ulis Aspirin) 325 mg 1X ONCE PO Last administered on 08/03/19at 10:31; Start 08/03/19 at 10:30; Stop 08/03/19 at 10:31; Status DC Fentanyl Citrate (Fentanyl 2ml Vial) 50 mcg 1X ONCE IVP Last administered on 08/03/19at 11:04; Start 08/03/19 at 11:00; Stop 08/03/19 at 11:01; Status DC Metoprolol Tartrate (Lopressor Vial) 5 mg STK-MED ONCE IVP ; Start 08/03/19 at 11:03; Stop 08/03/19 at 11:03; Status DC Metoprolol Tartrate (Lopressor Vial) 5 mg 1X ONCE IVP Last administered on 08/03/19at 11:08; Start 08/03/19 at 11:15; Stop 08/03/19 at 11:16; Status DC Morphine Sulfate (Morphine Sulfate) 4 mg 1X ONCE IV Last administered on 08/03/19at 12:22; Start 08/03/19 at 12:15; Stop 08/03/19 at 12:16; Status DC Hydralazine HCl (Apresoline Inj) 20 mg 1X ONCE IVP Last administered on 08/03/19at 12:29; Start 08/03/19 at 12:30; Stop 08/03/19 at 12:31; Status DC Ketorolac Tromethamine (Toradol 30mg Vial) 30 mg 1X ONCE IVP ; Start 08/03/19 at 14:00; Stop 08/03/19 at 14:01; Status UNV Prochlorperazine Edisylate (Compazine) 10 mg 1X ONCE IV ; Start 08/03/19 at 14:00; Stop 08/03/19 at 14:01; Status UNV Active Scripts Active Clindamycin Hcl 300 Mg Capsule 1 Cap PO TID Sidney 5-325 Tablet (Acetaminophen/Hydrocodone Bitart) 1 Each Tablet 1 Tab PO Q6HRS Lisinopril-Hctz 20-25 Mg Tab (Lisinopril/Hydrochlorothiazide) 1 Each Tablet 1 Tab PO DAILY Carvedilol (Carvedilol) 6.25 Mg Tablet 6.25 Mg PO BIDWMEALS 30 Days Flomax (Tamsulosin Hcl) 0.4 Mg Cap.er.24h 0.4 Mg PO DAILY 30 Days Reported Xanax (Alprazolam) 0.5 Mg Tablet 0.5 Mg PO PRN Q8HRS PRN Trazodone Hcl 150 Mg Tablet 150 Mg PO HS Ferrous Sulfate 325 Mg Tablet 325 Mg PO DAILY Aspirin 325 Mg Tablet 325 Mg PO DAILY Amlodipine Besylate 10 Mg Tablet 10 Mg PO DAILY Proair Hfa Inhaler (Albuterol Sulfate) 8.5 Gm Hfa.aer.ad 2 Puff IH PRN Q6HRS PRN 21 Days Allergies Allergies: Coded Allergies: Penicillins (Verified Allergy, Severe, ANAPHYLAXIS, 06/22/17) ROS Review of System Review of Systems Review of Systems Respiratory: Denies cough. +shortness of breath [] Cardiovascular: Left wall chest pain GI: Denies abdominal pain, nausea, vomiting, bloody stools or diarrhea. Decreased Appetite [] Neurologic: Generalized headache with blurred vision. Denies focal weakness or sensory changes [] 14 pt systems were reviewed and found to be within normal limits, except as documented PSYCHOLOGICAL ROS: YES: Anxiety; No: Behavioral Disorder, Concentration difficultie, Decreased libido, Depression, Disorientation, Hallucinations, Hostility, Irritablity, Memory difficulties, Mood Swings, Obsessive thoughts, Physical abuse, Sexual abuse, Sleep disturbances, Suicidal ideation, Other Hematological and Lymphatic: No: Bleeding Problems, Blood Clots, Blood Transfusions, Brusing, Night Sweats, Pallor, Swollen Lymph Nodes, Other Respiratory: YES: Shortness of breath, SOB with excertion; No: Cough, Hemoptysis, Orthopnea, Pleuritic Pain, Sputum Changes, Stridor, Tachypnea, Wheezing, Other Cardiovascular: yes Chest Pain; No Palpitations, No Orthopnea, No Paroxysmal Noc. Dyspnea, No Edema, No Lt Headedness, No Other Musculoskeletal: No Gait Disturbance, No Joint Pain, No Joint Stiffness, No Joint Swelling, No Muscle Pain, No Muscular Weakness, No Pain In:, No Swelling In:, No Other Skin: No Dry Skin, No Eczema, No Hair Changes, No Lumps, No Mole Changes, No Mottling, No Nail Changes, No Pruritus, No Rash, No Skin Lesion Changes, No Other, No Acne Physical Exam Physical Exam Physical Exam Physical Exam Constitutional: Well developed, well nourished, no acute distress, non-toxic appearance. [] HENT: Normocephalic, atraumatic, bilateral external ears normal, oropharynx moist, no oral exudates, nose normal. [] Eyes: PERRLA, EOMI, conjunctiva normal, no discharge. [] Neck: Normal range of motion, no tenderness, supple, no stridor. [] Cardiovascular:Heart rate regular rhythm, no murmur [] Lungs & Thorax: Bilateral breath sounds diminished to auscultation [] Abdomen: Bowel sounds normal, soft, no tenderness, no masses, no pulsatile masses. [] Skin: Warm, dry, no erythema, no rash. [] Back: No tenderness, no CVA tenderness. [] Extremities: No tenderness, no cyanosis, no clubbing, ROM intact, no edema. [] Neurologic: Alert and oriented X 3, normal motor function, normal sensory function, no focal deficits noted. [] Psychologic: Affect normal, judgement normal, mood normal. [] General: Alert, Oriented X3, Cooperative, No acute distress HEENT: Atraumatic, PERRLA, EOMI, Mucous membr. moist/pink Lungs: Clear to auscultation, Normal air movement Heart: S1S2, RRR, no thrills Breasts: Not examined Abdomen: Normal bowel sounds, Soft Rectal Exam: not examined PELVIC: Examination not indicated Extremities: No cyanosis, No edema Neuro: Normal speech, Cranial nerves 3-12 NL Psych/Mental Status: Mental status NL, Mood NL Vitals Vitals Vital Signs Date Time Temp Pulse Resp B/P (MAP) Pulse Ox O2 Delivery O2 Flow Rate FiO2 08/03/19 13:35 63 16 169/101 (123) 97 Room Air 08/03/19 09:47 98.6 98.6 Labs Labs Laboratory Tests Test 08/03/19 10:16 08/03/19 10:34 08/03/19 11:00 08/03/19 11:15 Sodium Level 138 mmol/L (136-145) Potassium Level 4.4 mmol/L (3.5-5.1) Chloride Level 100 mmol/L (98-107) Carbon Dioxide Level 33 mmol/L (21-32) Anion Gap 5 (6-14) Blood Urea Nitrogen 19 mg/dL (8-26) Creatinine 1.2 mg/dL (0.7-1.3) Estimated GFR (Cockcroft-Gault) 75.8 BUN/Creatinine Ratio 16 (6-20) Glucose Level 90 mg/dL (70-99) Calcium Level 9.2 mg/dL (8.5-10.1) Total Bilirubin 0.4 mg/dL (0.2-1.0) Aspartate Amino Transf (AST/SGOT) 30 U/L (15-37) Alanine Aminotransferase (ALT/SGPT) 23 U/L (16-63) Alkaline Phosphatase 120 U/L (46-116) Troponin I Quantitative < 0.017 ng/mL (0.000-0.055) AG-Qhp-A-Type Natriuretic Peptide 388 pg/mL (0-124) Total Protein 7.6 g/dL (6.4-8.2) Albumin 3.4 g/dL (3.4-5.0) Albumin/Globulin Ratio 0.8 (1.0-1.7) Influenza Type A Antigen Negative (NEGATIVE) Influenza Type B Antigen Negative (NEGATIVE) Urine Collection Type Unknown Urine Color Yellow Urine Clarity Clear Urine pH 7.5 (<5.0-8.0) Urine Specific Hume 1.015 (1.000-1.030) Urine Protein 100 mg/dL (NEG-TRACE) Urine Glucose (UA) Negative mg/dL (NEG) Urine Ketones (Stick) Negative mg/dL (NEG) Urine Blood Negative (NEG) Urine Nitrite Negative (NEG) Urine Bilirubin Negative (NEG) Urine Urobilinogen Dipstick 0.2 mg/dL (0.2 mg/dL) Urine Leukocyte Esterase Negative (NEG) Urine RBC 3-5 /HPF (0-2) Urine WBC 0 /HPF (0-4) Urine Bacteria 0 /HPF (0-FEW) White Blood Count 4.2 x10^3/uL (4.0-11.0) Red Blood Count 4.38 x10^6/uL (4.30-5.70) Hemoglobin 13.5 g/dL (13.0-17.5) Hematocrit 40.2 % (39.0-53.0) Mean Corpuscular Volume 92 fL (79-100) Mean Corpuscular Hemoglobin 31 pg (25-35) Mean Corpuscular Hemoglobin Concent 34 g/dL (31-37) Red Cell Distribution Width 14.9 % (11.5-14.5) Platelet Count 205 x10^3/uL (140-400) Neutrophils (%) (Auto) 70 % (31-73) Lymphocytes (%) (Auto) 18 % (24-48) Monocytes (%) (Auto) 11 % (0-9) Eosinophils (%) (Auto) 1 % (0-3) Basophils (%) (Auto) 1 % (0-3) Neutrophils # (Auto) 2.9 x10^3/uL (1.8-7.7) Lymphocytes # (Auto) 0.8 x10^3/uL (1.0-4.8) Monocytes # (Auto) 0.4 x10^3/uL (0.0-1.1) Eosinophils # (Auto) 0.0 x10^3/uL (0.0-0.7) Basophils # (Auto) 0.0 x10^3/uL (0.0-0.2) Laboratory Tests Test 08/03/19 10:16 08/03/19 10:34 08/03/19 11:00 08/03/19 11:15 Sodium Level 138 mmol/L (136-145) Potassium Level 4.4 mmol/L (3.5-5.1) Chloride Level 100 mmol/L (98-107) Carbon Dioxide Level 33 mmol/L (21-32) Anion Gap 5 (6-14) Blood Urea Nitrogen 19 mg/dL (8-26) Creatinine 1.2 mg/dL (0.7-1.3) Estimated GFR (Cockcroft-Gault) 75.8 BUN/Creatinine Ratio 16 (6-20) Glucose Level 90 mg/dL (70-99) Calcium Level 9.2 mg/dL (8.5-10.1) Total Bilirubin 0.4 mg/dL (0.2-1.0) Aspartate Amino Transf (AST/SGOT) 30 U/L (15-37) Alanine Aminotransferase (ALT/SGPT) 23 U/L (16-63) Alkaline Phosphatase 120 U/L (46-116) Troponin I Quantitative < 0.017 ng/mL (0.000-0.055) PE-Qcq-O-Type Natriuretic Peptide 388 pg/mL (0-124) Total Protein 7.6 g/dL (6.4-8.2) Albumin 3.4 g/dL (3.4-5.0) Albumin/Globulin Ratio 0.8 (1.0-1.7) Influenza Type A Antigen Negative (NEGATIVE) Influenza Type B Antigen Negative (NEGATIVE) Urine Collection Type Unknown Urine Color Yellow Urine Clarity Clear Urine pH 7.5 (<5.0-8.0) Urine Specific Hume 1.015 (1.000-1.030) Urine Protein 100 mg/dL (NEG-TRACE) Urine Glucose (UA) Negative mg/dL (NEG) Urine Ketones (Stick) Negative mg/dL (NEG) Urine Blood Negative (NEG) Urine Nitrite Negative (NEG) Urine Bilirubin Negative (NEG) Urine Urobilinogen Dipstick 0.2 mg/dL (0.2 mg/dL) Urine Leukocyte Esterase Negative (NEG) Urine RBC 3-5 /HPF (0-2) Urine WBC 0 /HPF (0-4) Urine Bacteria 0 /HPF (0-FEW) White Blood Count 4.2 x10^3/uL (4.0-11.0) Red Blood Count 4.38 x10^6/uL (4.30-5.70) Hemoglobin 13.5 g/dL (13.0-17.5) Hematocrit 40.2 % (39.0-53.0) Mean Corpuscular Volume 92 fL (79-100) Mean Corpuscular Hemoglobin 31 pg (25-35) Mean Corpuscular Hemoglobin Concent 34 g/dL (31-37) Red Cell Distribution Width 14.9 % (11.5-14.5) Platelet Count 205 x10^3/uL (140-400) Neutrophils (%) (Auto) 70 % (31-73) Lymphocytes (%) (Auto) 18 % (24-48) Monocytes (%) (Auto) 11 % (0-9) Eosinophils (%) (Auto) 1 % (0-3) Basophils (%) (Auto) 1 % (0-3) Neutrophils # (Auto) 2.9 x10^3/uL (1.8-7.7) Lymphocytes # (Auto) 0.8 x10^3/uL (1.0-4.8) Monocytes # (Auto) 0.4 x10^3/uL (0.0-1.1) Eosinophils # (Auto) 0.0 x10^3/uL (0.0-0.7) Basophils # (Auto) 0.0 x10^3/uL (0.0-0.2) Images Images APPROVED REPORT EXAM: Two-dimensional and M-mode echocardiogram with Doppler and color Doppler. Other Information Quality : Average HR: 89bpm Rhythm : NSR Technically limited study due to smoking. INDICATION Chest Pain 2D DIMENSIONS RVDd 2.9 (2.9-3.5cm) Left Atrium(2D) 3.0 (1.6-4.0cm) IVSd 1.5 (0.7-1.1cm) Aortic Root(2D) 2.6 (2.0-3.7cm) LVDd 4.1 (3.9-5.9cm) LVOT Diameter 2.0 (1.8-2.4cm) PWd 1.4 (0.7-1.1cm) LVDs 3.0 (2.5-4.0cm) FS (%) 26.9 % SV 40.3 ml LVEF(%) 55.0 (>50%) Aortic Valve AoV Peak Piter. 151.6cm/s AoV VTI 22.0cm AO Peak GR. 9.2mmHg LVOT VTI 16.00cm AO Mean GR. 4mmHg BRADY (VMAX) 2.30cm2 BRADY (VTI) 2.50cm2 Mitral Valve MV E Velocity 58.1cm/s MV DECEL TIME 146ms MV A Velocity 80.3cm/s E/A Ratio 0.7 MV A Duration 77ms TDI Lateral E' P. V 11.46cm/s Medial E' P. V 6.89cm/s E/Lateral E' 5.1 E/Medial E' 8.4 LEFT VENTRICLE The left ventricle is normal size. There is moderate concentric left ventricular hypertrophy. The left ventricular systolic function is normal. The Ejection Fraction is 55-60%. There is normal LV segmental wall motion. Transmitral Doppler flow pattern is Grade I-abnormal relaxation pattern. RIGHT VENTRICLE The right ventricle is normal size. There is normal right ventricular wall thickness. The right ventricular systolic function is normal. ATRIA The left atrium size is normal. The right atrium size is normal. The interatrial septum is intact with no evidence for an atrial septal defect or patent foramen ovale as noted on 2-D or Doppler imaging. AORTIC VALVE The aortic valve is thickened but opens well. The aortic valve is trileaflet. Doppler and Color Flow revealed no significant aortic regurgitation. There is no significant aortic valvular stenosis. MITRAL VALVE The mitral valve is normal in structure and function. There is no evidence of mitral valve prolapse. There is no mitral valve stenosis. Doppler and Color-flow revealed trace mitral regurgitation. TRICUSPID VALVE The tricuspid valve is normal in structure and function. Doppler and Color Flow revealed no tricuspid valve regurgitation noted. There is no tricuspid valve prolapse or vegetation. There is no tricuspid valve stenosis. PULMONIC VALVE The pulmonic valve is not well visualized. GREAT VESSELS The aortic root is normal in size. The ascending aorta is normal in size. The IVC is normal in size and collapses >50% with inspiration. PERICARDIAL EFFUSION There is no evidence of significant pericardial effusion. Critical Notification Critical Value: No <Conclusion> The left ventricular systolic function is normal. The Ejection Fraction is 55-60%. There is moderate concentric left ventricular hypertrophy. There is normal LV segmental wall motion. Transmitral Doppler flow pattern is Grade I-abnormal relaxation pattern. Doppler and Color-flow revealed trace mitral regurgitation. There is no evidence of significant pericardial effusion. Signed by : Carolynn Hall, Electronically Approved : 06/10/2019 12:40:41 DICTATED and SIGNED BY: CAROLYNN HALL MD DATE: 06/10/19 1203 HEART CATH HEART CATH Findings. Hemodynamics. Left ventricular pressure 150/20, aortic root pressure of 154/92. Coronaries. Left main. The left main was a short vessel with no lesions. Left anterior descending. The LAD was a moderate size vessel. It had a mid 20% lesion. Left circumflex. The left circumflex was a very large dominant vessel with no lesions. Right coronary artery. The right coronary artery is a small nondominant vessel with no lesions. Left ventriculogram. The left ventricle showed normal left ventricular systolic function with an ejection fraction estimated at 55%. Aortic root. The aortic root is mildly enlarged. There was no aortic insufficiency. <Conclusion> Mild single-vessel coronary artery disease. Intact LV systolic function. Mildly enlarged aortic root. DATE: 09/02/17 1252 VTE Prophylaxis Ordered VTE Prophylaxis Devices: No VTE Pharmacological Prophylaxi: Yes Assessment/Plan Assessment/Plan impression 1. angina with mixed features 2. hypertensive urgency 3. medication noncompliance 4. tobacco abuse 5, THC abuse 6. moderate concentric left ventricular hypertrophy plan admit serial troponin i iv hydralazine 10mg q 4 hrs prn bp support dvt prophylaxis lisinopril 5 mg po bid norvasc 10 mg po daily d/w er dr COREY,EMMANUEL Curry MD Aug 03, 2019 13:57
[2019-08-03] MEDS ORDERED: KETOROLAC 30 MG/ML VIAL. IVP ONE (14:00)
[2019-08-03] MEDS ORDERED: PROCHLORPERAZINE 10 MG/2 ML VIAL. IV ONE (14:00)
[2019-08-03] MEDS ORDERED: hydrALAZINE 20 MG/ML VIAL. IVP PRN ×2 (14:00→16:30)
[2019-08-03] MEDS ORDERED: ACETAMINOPHEN 325 MG TABLET. PO PRN (14:15)
[2019-08-03] MEDS ORDERED: MORPHINE SULFATE 4 MG/ML VIAL. IV PRN (14:15)
[2019-08-03] MEDS ORDERED: ONDANSETRON PF 4 MG/2 ML VIAL. IV PRN (14:15)
[2019-08-03 14:19] LABS: AMPHETAMINE/METHAMPHETAMINE NEG (NEG); BARBITURATES NEG (NEG); BENZODIAZEPINES NEG (NEG); CANNABINOIDS POS (NEG); COCAINE NEG (NEG); METHADONE NEG (NEG); OPIATES NEG (NEG); PHENCYCLIDINE NEG (NEG)
--- NOTE | 2019-08-03 15:47 | PDOC2 ---
SAMUEL MARTIN DILMA 08/03/19 1547: CARDIAC CONSULT DATE OF CONSULT Date of Consult DATE: 08/03/19 TIME: 15:40 REASON FOR CONSULT Reason for Consult: Chest pain REFERRING PHYSICIAN Referring Physician: Adelaide Kowalski APRN SOURCE Source: Chart review, Patient HISTORY OF PRESENT ILLNESS HISTORY OF PRESENT ILLNESS This is a 58 yo male who presented secondary to chest pain. Patient known to our service from previous admissions. Last admission was noted with chest pain and malignant hypertension as he had ran out of blood pressure medication. Echo noted with preserved LV systolic function. Chest pain resolved with blood pressure control. Was sent home with medication refills. Unfortunately, patient was unable to obtain PCP in the meantime and ran out of his medications a couple of weeks ago. For the last week, he has experienced HARDY, upper back pain, chest pressure, and fell as if it is difficulty to take a deep breath. No dizziness, diaphoresis, palpitations, nausea/vomiting, or LE edema. No recent cough/fevers/or sick contacts. Also reporting some depression as his recently left and took their child with her. Has 7 additional child and multiple children/grandchildren living with him. PAST MEDICAL HISTORY Past Medical History Cardiovascular: CAD, HTN, Hyperlipidemia Pulmonary: Asthma, COPD GI: GERD Psych: Anxiety, Bipolar, Depression Musculoskeletal: Osteoarthritis PAST SURGICAL HISTORY Past Surgical History: Total hip replacement FAMILY HISTORY Family History: Hypertension SOCIAL HISTORY Social History Smoke: 1 pack per day ALCOHOL: occassional Drugs: Marijuana Lives: with Family CURRENT MEDICATIONS CURRENT MEDICATIONS Current Medications Medications (Trade) Dose Ordered Sig/Melody Route PRN Reason Start Time Stop Time Status Last Admin Dose Admin Sodium Chloride 1,000 ml @ 1,000 mls/hr Q1H IV 08/03/19 10:17 08/03/19 11:16 DC 08/03/19 10:28 Methylprednisolone Sodium Succinate (SOLU-Medrol 125MG VIAL) 125 mg 1X ONCE IV 08/03/19 10:30 08/03/19 10:31 DC 08/03/19 10:28 Nitroglycerin (Nitrostat) 0.4 mg PRN Q5MIN PRN SL CHEST PAIN 08/03/19 10:30 08/03/19 10:31 Albuterol Sulfate (Ventolin Neb Soln) 10 mg 1X ONCE CONT NEB 08/03/19 10:30 4/6/20 10:31 DC 08/03/19 10:55 Aspirin (Jorge Luis Aspirin) 325 mg 1X ONCE PO 08/03/19 10:30 08/03/19 10:31 DC 08/03/19 10:31 Fentanyl Citrate (Fentanyl 2ml Vial) 50 mcg 1X ONCE IVP 08/03/19 11:00 08/03/19 11:01 DC 08/03/19 11:04 Metoprolol Tartrate (Lopressor Vial) 5 mg 1X ONCE IVP 08/03/19 11:15 08/03/19 11:16 DC 08/03/19 11:08 Morphine Sulfate (Morphine Sulfate) 4 mg 1X ONCE IV 08/03/19 12:15 08/03/19 12:16 DC 08/03/19 12:22 Hydralazine HCl (Apresoline Inj) 20 mg 1X ONCE IVP 08/03/19 12:30 08/03/19 12:31 DC 08/03/19 12:29 Ketorolac Tromethamine (Toradol 30mg Vial) 30 mg 1X ONCE IVP 08/03/19 14:00 08/03/19 14:04 DC 08/03/19 14:25 Prochlorperazine Edisylate (Compazine) 10 mg 1X ONCE IV 08/03/19 14:00 08/03/19 14:04 DC 08/03/19 14:23 ALLERGIES ALLERGIES: Coded Allergies: Penicillins (Verified Allergy, Severe, ANAPHYLAXIS, 06/22/17) ROS Review of System 14 point ROS conducted with pertinent positives noted above in hPI PHYSICAL EXAM General: Alert, Oriented X3, Cooperative, No acute distress HEENT: Atraumatic, Mucous membr. moist/pink Lungs: Other (diminished bases ) Heart: Regular rate, No murmurs Abdomen: Soft, No tenderness Extremities: No edema, Normal pulses Skin: No significant lesion Neuro: Normal speech, Sensation intact Psych/Mental Status: Mental status NL, Mood NL MUSCULOSKELETAL: Osteoarthritic changes both hands VITALS/I&O VITALS/I&O: Vital Signs Date Time Temp Pulse Resp B/P (MAP) Pulse Ox O2 Delivery O2 Flow Rate FiO2 08/03/19 15:13 86 16 166/102 (123) 96 Room Air 08/03/19 09:47 98.6 98.6 LABS Lab: Laboratory Tests Test 08/03/19 10:16 08/03/19 10:34 4/6/20 11:00 08/03/19 11:15 Sodium Level 138 mmol/L (136-145) Potassium Level 4.4 mmol/L (3.5-5.1) Chloride Level 100 mmol/L (98-107) Carbon Dioxide Level 33 mmol/L (21-32) H Anion Gap 5 (6-14) L Blood Urea Nitrogen 19 mg/dL (8-26) Creatinine 1.2 mg/dL (0.7-1.3) Estimated GFR (Cockcroft-Gault) 75.8 BUN/Creatinine Ratio 16 (6-20) Glucose Level 90 mg/dL (70-99) Calcium Level 9.2 mg/dL (8.5-10.1) Total Bilirubin 0.4 mg/dL (0.2-1.0) Aspartate Amino Transferase (AST) 30 U/L (15-37) Alanine Aminotransferase (ALT) 23 U/L (16-63) Alkaline Phosphatase 120 U/L (46-116) H Troponin I Quantitative < 0.017 ng/mL (0.000-0.055) CC-Jqn-[id number]-Type Natriuretic Peptide 388 pg/mL (0-124) H Total Protein 7.6 g/dL (6.4-8.2) Albumin 3.4 g/dL (3.4-5.0) Albumin/Globulin Ratio 0.8 (1.0-1.7) L Influenza Type A Antigen Negative (NEGATIVE) Influenza Type B Antigen Negative (NEGATIVE) Urine Collection Type Unknown Urine Color Yellow Urine Clarity Clear Urine pH 7.5 (<5.0-8.0) Urine Specific [place] 1.015 (1.000-1.030) Urine Protein 100 mg/dL (NEG-TRACE) Urine Glucose (UA) Negative mg/dL (NEG) Urine Ketones (Stick) Negative mg/dL (NEG) Urine Blood Negative (NEG) Urine Nitrite Negative (NEG) Urine Bilirubin Negative (NEG) Urine Urobilinogen Dipstick 0.2 mg/dL (0.2 mg/dL) Urine Leukocyte Esterase Negative (NEG) Urine RBC 3-5 /HPF (0-2) Urine WBC 0 /HPF (0-4) Urine Bacteria 0 /HPF (0-FEW) Urine Opiates Screen Neg (NEG) Urine Methadone Screen Neg (NEG) Urine Barbiturates Neg (NEG) Urine Phencyclidine Screen Neg (NEG) Urine Amphetamine/Methamphetamine Neg (NEG) Urine Benzodiazepines Screen Neg (NEG) Urine Cocaine Screen Neg (NEG) Urine Cannabinoids Screen Pos (NEG) Urine Ethyl Alcohol Neg (NEG) White Blood Count 4.2 x10^3/uL (4.0-11.0) Red Blood Count 4.38 x10^6/uL (4.30-5.70) Hemoglobin 13.5 g/dL (13.0-17.5) Hematocrit 40.2 % (39.0-53.0) Mean Corpuscular Volume 92 fL (79-100) Mean Corpuscular Hemoglobin 31 pg (25-35) Mean Corpuscular Hemoglobin Concent 34 g/dL (31-37) Red Cell Distribution Width 14.9 % (11.5-14.5) H Platelet Count 205 x10^3/uL (140-400) Neutrophils (%) (Auto) 70 % (31-73) Lymphocytes (%) (Auto) 18 % (24-48) L Monocytes (%) (Auto) 11 % (0-9) H Eosinophils (%) (Auto) 1 % (0-3) Basophils (%) (Auto) 1 % (0-3) Neutrophils # (Auto) 2.9 x10^3/uL (1.8-7.7) Lymphocytes # (Auto) 0.8 x10^3/uL (1.0-4.8) L Monocytes # (Auto) 0.4 x10^3/uL (0.0-1.1) Eosinophils # (Auto) 0.0 x10^3/uL (0.0-0.7) Basophils # (Auto) 0.0 x10^3/uL (0.0-0.2) Laboratory Tests 08/03/19 11:15 Laboratory Tests 08/03/19 10:16 ECHOCARDIOGRAM ECHOCARDIOGRAM <Conclusion> The left ventricular systolic function is normal. The Ejection Fraction is 55-60%. There is moderate concentric left ventricular hypertrophy. There is normal LV segmental wall motion. Transmitral Doppler flow pattern is Grade I-abnormal relaxation pattern. Doppler and Color-flow revealed trace mitral regurgitation. There is no evidence of significant pericardial effusion. DATE: 06/10/19 1207 HEART CATH HEART CATH Findings. Hemodynamics. Left ventricular pressure 150/20, aortic root pressure of 154/92. Coronaries. Left main. The left main was a short vessel with no lesions. Left anterior descending. The LAD was a moderate size vessel. It had a mid 20% lesion. Left circumflex. The left circumflex was a very large dominant vessel with no lesions. Right coronary artery. The right coronary artery is a small nondominant vessel with no lesions. Left ventriculogram. The left ventricle showed normal left ventricular systolic function with an ejection fraction estimated at 55%. Aortic root. The aortic root is mildly enlarged. There was no aortic insufficiency. <Conclusion> Mild single-vessel coronary artery disease. Intact LV systolic function. Mildly enlarged aortic root. DATE: 09/02/17 1252 ASSESSMENT/PLAN ASSESSMENT/PLAN 1. Chest pain, mixed feature. Initial trop negative. Possibly secondary to #2. 2. Hypertensive urgency; secondary to missed meds. Ran out 2 weeks ago. 3. CAD; mild, non-obstructive single-vessel disease per cath 2018 as noted above. 4. Hyperlipidemia 5. GERD 6. CKD; Cr stable. 8. Tobaccoism, marijuana use; discussed/encouraged cessation Recommendations Resume antiHTN therapy Hydralazine IV PRN ASA, statin If CP recurrent despite adequate BP control, will consider further ischemic e valuation Supportive care GUIDO ATKINS MD 08/03/19 1935: CARDIAC CONSULT ASSESSMENT/PLAN ASSESSMENT/PLAN Pt. seen and examined. Agree with above CATALYTIC CONVERTER OPERATOR HELPER note. 58 y.o male with HTN and non-compliance issues. If trop positive, repeat echo, otherwise, plan for medical mgmt. Supportive care. Thanks SAMUEL MARTIN APRN Aug 03, 2019 15:47 GUIDO ATKINS MD Aug 03, 2019 19:35
[2019-08-03 16:45] VITALS: BP 170/100
[2019-08-03] MEDS ORDERED: ALBUTEROL SULFATE 2.5 MG/3 ML NEBU. NEB PRN (17:00)
[2019-08-03] MEDS ORDERED: ALPRAZolam 0.5 MG TABLET PO PRN (17:00)
[2019-08-03] MEDS: CARVEDILOL 6.25 MG TABLET. PO SCH (17:30)
[2019-08-03] MEDS: HYDROcodone/APAP 5/325MG 1 TAB TABLET PO SCH ×2 (17:31→20:33)
[2019-08-03 17:44] LABS: BASE EXCESS COOX 2 mmol/L (-3-3); HCO3 COOX 24 mmol/L (21-28); METHEMOGLOBIN 0.4 % (0.0-1.9); OXYHEMOGLOBIN 94.7 %; PCO2 COOX 31 mmHg (35-46); PO2 COOX 78 mmHg (75-108); SAT O2 COOX 96 % (92-99)
[2019-08-03 18:38] VITALS: BP 161/105
--- NOTE | 2019-08-03 20:24 | NUR ---
ok to give lortab @ [address] Knapp
[2019-08-03] MEDS ORDERED: traZODone 100 MG TABLET. PO SCH (21:00)
[2019-08-03] MEDS ORDERED: LISINOPRIL 5 MG TABLET. PO SCH (21:00)
[2019-08-03] MEDS ORDERED: ATORVASTATIN CALCIUM 20 MG TABLET PO SCH (21:00)
[2019-08-03 23:10] VITALS: BP 119/84
[2019-08-04 03:05] VITALS: BP 116/61
[2019-08-04 07:17] VITALS: BP 146/96
[2019-08-04] MEDS: CARVEDILOL 6.25 MG TABLET. PO SCH (08:00)
--- NOTE | 2019-08-04 08:30 | NUR ---
PATIENT REMAINS NPO AT THIS TIME, SLEEPING BUT EASY TO AROUSE, WILL CONTACT CARDIOLOGY TO FIND OUT WHAT TIME AND IF THE PATIENT WILL HAVE CARDIAC CATH TODAY, PATIENT INFORMED.
[2019-08-04] MEDS ORDERED: amLODIPine BESYLATE 10 MG TABLET PO SCH (09:00)
[2019-08-04] MEDS ORDERED: hydroCHLOROthiazide 25 MG TABLET PO SCH (09:00)
[2019-08-04] MEDS ORDERED: ASPIRIN 325 MG TABLET PO SCH (09:00)
[2019-08-04] MEDS ORDERED: FERROUS SULFATE 325 MG TABLET. PO SCH (09:00)
[2019-08-04] MEDS ORDERED: TAMSULOSIN 0.4 MG CAP.ER.24H. PO SCH (09:00)
[2019-08-04] MEDS ORDERED: LISINOPRIL 20 MG TABLET PO SCH (09:00)
--- NOTE | 2019-08-04 09:02 | PDOC ---
ZANDER DYER ULTRASOUND TECH 08/04/19 0902: CARDIO Progress Notes Date and Time Date of Service 08/04/2019 Time of Evaluation 1000 Subjective Subjective: No Chest Pain, No shortness of breath, No Palpitations, Other (coughing) Vitals Vitals Vital Signs Date Time Temp Pulse Resp B/P (MAP) Pulse Ox O2 Delivery O2 Flow Rate FiO2 08/04/19 07:17 98.8 100 20 146/96 (113) 95 Room Air 98.8 Weight Weight [ ] Input and Output Intake and Output Intake and Output 08/04/19 07:00 Intake Total 1580 ml Output Total 100 ml Balance 1480 ml Intake Oral 580 ml IV Total 1000 ml Output Urine Total 100 ml Laboratory Labs Laboratory Tests Test 08/03/19 10:16 08/03/19 10:34 08/03/19 11:00 08/03/19 11:15 Sodium Level 138 mmol/L (136-145) Potassium Level 4.4 mmol/L (3.5-5.1) Chloride Level 100 mmol/L (98-107) Carbon Dioxide Level 33 mmol/L (21-32) Anion Gap 5 (6-14) Blood Urea Nitrogen 19 mg/dL (8-26) Creatinine 1.2 mg/dL (0.7-1.3) Estimated GFR (Cockcroft-Gault) 75.8 BUN/Creatinine Ratio 16 (6-20) Glucose Level 90 mg/dL (70-99) Calcium Level 9.2 mg/dL (8.5-10.1) Total Bilirubin 0.4 mg/dL (0.2-1.0) Aspartate Amino Transf (AST/SGOT) 30 U/L (15-37) Alanine Aminotransferase (ALT/SGPT) 23 U/L (16-63) Alkaline Phosphatase 120 U/L (46-116) Troponin I Quantitative < 0.017 ng/mL (0.000-0.055) [id number]-Type Natriuretic Peptide 388 pg/mL (0-124) Total Protein 7.6 g/dL (6.4-8.2) Albumin 3.4 g/dL (3.4-5.0) Albumin/Globulin Ratio 0.8 (1.0-1.7) Influenza Type A Antigen Negative (NEGATIVE) Influenza Type B Antigen Negative (NEGATIVE) Urine Collection Type Unknown Urine Color Yellow Urine Clarity Clear Urine pH 7.5 (<5.0-8.0) Urine Specific [place] 1.015 (1.000-1.030) Urine Protein 100 mg/dL (NEG-TRACE) Urine Glucose (UA) Negative mg/dL (NEG) Urine Ketones (Stick) Negative mg/dL (NEG) Urine Blood Negative (NEG) Urine Nitrite Negative (NEG) Urine Bilirubin Negative (NEG) Urine Urobilinogen Dipstick 0.2 mg/dL (0.2 mg/dL) Urine Leukocyte Esterase Negative (NEG) Urine RBC 3-5 /HPF (0-2) Urine WBC 0 /HPF (0-4) Urine Bacteria 0 /HPF (0-FEW) Urine Opiates Screen Neg (NEG) Urine Methadone Screen Neg (NEG) Urine Barbiturates Neg (NEG) Urine Phencyclidine Screen Neg (NEG) Urine Amphetamine/Methamphetamine Neg (NEG) Urine Benzodiazepines Screen Neg (NEG) Urine Cocaine Screen Neg (NEG) Urine Cannabinoids Screen Pos (NEG) Urine Ethyl Alcohol Neg (NEG) White Blood Count 4.2 x10^3/uL (4.0-11.0) Red Blood Count 4.38 x10^6/uL (4.30-5.70) Hemoglobin 13.5 g/dL (13.0-17.5) Hematocrit 40.2 % (39.0-53.0) Mean Corpuscular Volume 92 fL (79-100) Mean Corpuscular Hemoglobin 31 pg (25-35) Mean Corpuscular Hemoglobin Concent 34 g/dL (31-37) Red Cell Distribution Width 14.9 % (11.5-14.5) Platelet Count 205 x10^3/uL (140-400) Neutrophils (%) (Auto) 70 % (31-73) Lymphocytes (%) (Auto) 18 % (24-48) Monocytes (%) (Auto) 11 % (0-9) Eosinophils (%) (Auto) 1 % (0-3) Basophils (%) (Auto) 1 % (0-3) Neutrophils # (Auto) 2.9 x10^3/uL (1.8-7.7) Lymphocytes # (Auto) 0.8 x10^3/uL (1.0-4.8) Monocytes # (Auto) 0.4 x10^3/uL (0.0-1.1) Eosinophils # (Auto) 0.0 x10^3/uL (0.0-0.7) Basophils # (Auto) 0.0 x10^3/uL (0.0-0.2) Test 08/03/19 17:00 08/03/19 17:40 08/03/19 22:45 Troponin I Quantitative < 0.017 ng/mL (0.000-0.055) < 0.017 ng/mL (0.000-0.055) O2 Saturation 96 % (92-99) Arterial Blood pH 7.51 (7.35-7.45) Arterial Blood pCO2 at Patient Temp 31 mmHg (35-46) Arterial Blood pO2 at Patient Temp 78 mmHg (75-108) Arterial Blood HCO3 24 mmol/L (21-28) Arterial Blood Base Excess 2 mmol/L (-3-3) Oxyhemoglobin 94.7 % Methemoglobin 0.4 % (0.0-1.9) Carbon Monoxide, Quantitative 1.2 % (0.0-1.9) FiO2 21% Physical Exam HEENT: Neck Supple W Full Motion Chest: Symmetric LUNGS: Other (diffuse wheeze with upper rhonchi) Heart: RRR (Sr/ST with PVCs) Abdomen: Soft N/T Extremities: No Calf Tenderness Neurology: alert, oriented, follow commands Assessment Assessment 1. Chest pain: Possibly related to high BP and cough. Trops nml. Recent TTE noted with EF and WM nml 2. HTN urgency; secondary to missed meds. BP better 3. CAD; mild, non-obstructive single-vessel disease per cath 2018 as noted above. 4. HLP: recent lipids were on goal 5. CKD2-3 8. AECOPD with tobaccoism: presently with cough and diffuse wheeze. Ran out of inhaler as well 9. Substance abuse: marijuana use 10. Noncompliance: Ran out of meds 2 weeks ago 11. Reactive sinus tach Recommendations 1. Continue with current BP regimen. Will change coreg to metoprolol 2. Continue ASA, statin 3. Obtain PCXR, BMP, Mg and CBC today. Discussed with RN 3. Will consider for outpt MPI. 4. Discussed compliance, tobacco and marijuana cessation. GUIDO ATKINS MD 08/04/19 1042: CARDIO Progress Notes Plan Plan Pt. seen and examined. Agree with above BELT LOOP MAKER note. Supportive care. Ok to DC from CV standpoint. Discussed with Dr. De Jesus. ZANDER DYER ULTRASOUND TECH Aug 04, 2019 09:02 GUIDO ATKINS MD Aug 04, 2019 10:42
--- NOTE | 2019-08-04 09:15 | NUR ---
SPOKE WITH CARDIOLOGY(FLORINA), INFORMED THIS CAKE PRESS OPERATOR HELPER THAT THE PATIENT WOULD NOT HAVE SURGERY D/T TROPONIN LEVELS ARE NORMAL AND THAT THE PATIENT COULD BE DISCHARGED FROM HIS STANDPOINT, PATIENT INFORMED, CARDIAC DIET ORDERED.
[2019-08-04] MEDS: HYDROcodone/APAP 5/325MG 1 TAB TABLET PO SCH (09:50)
[2019-08-04 10:30] VITALS: BP 152/96
[2019-08-04] MEDS ORDERED: CARV6.2511 PO (11:01)
[2019-08-04] MEDS ORDERED: AMLO10TA8 PO (11:01)
[2019-08-04] MEDS ORDERED: ALBU2.5V8 IH (11:01)
[2019-08-04] MEDS ORDERED: LISI1TAB20 PO (11:01)
[2019-08-04] MEDS ORDERED: ASPI325T8 PO (11:01)
--- NOTE | 2019-08-04 11:03 | RAD ---
Single AP view of the chest. Comparison: 08/03/2019. Indication: Dyspnea Findings: Lungs are hyperexpanded. The heart is not enlarged. There is no pneumothorax or effusion. No air space or interstitial disease. Impression: 1. No acute cardiopulmonary process. Electronically signed by: Santos Pena MD (08/04/2019 11:01 AM) [id number]
--- NOTE | 2019-08-04 11:13 | PDOC3 ---
Discharge Summary Visit Information Date of Admission: Aug 03, 2019 Date of Discharge: Aug 04, 2019 Admitting Diagnosis Comment: 1. angina with mixed features 2. hypertensive urgency 3. medication noncompliance 4. tobacco abuse 5, THC abuse 6. moderate concentric left ventricular hypertrophy Final Diagnosis Problems Medical Problems: (1) Chest pain most likely related to his underlying essential hypertension for which he has been on complying to medications Status: Acute (2) hypertensive urgency secondary to medication noncompliance (3) Opioid dependance, [place] was reviewed, patient received 100 tabs of oxycodone/apap on 07/28/2019 (4) drug seeking behaviour Status: Acute Brief Hospital Course Allergies Allergies Coded Allergies Type Severity Reaction Last Updated Verified Penicillins Allergy Severe ANAPHYLAXIS 06/22/17 Yes Vital Signs Vital Signs Date Time Temp Pulse Resp B/P (MAP) Pulse Ox O2 Delivery O2 Flow Rate FiO2 08/04/19 10:37 96 Room Air 08/04/19 10:30 98.8 101 22 152/96 (114) 98.8 Lab Results Laboratory Tests Test 08/03/19 10:16 08/03/19 10:34 08/03/19 11:00 08/03/19 11:15 Sodium Level 138 mmol/L (136-145) Potassium Level 4.4 mmol/L (3.5-5.1) Chloride Level 100 mmol/L (98-107) Carbon Dioxide Level 33 mmol/L (21-32) Anion Gap 5 (6-14) Blood Urea Nitrogen 19 mg/dL (8-26) Creatinine 1.2 mg/dL (0.7-1.3) Estimated GFR (Cockcroft-Gault) 75.8 BUN/Creatinine Ratio 16 (6-20) Glucose Level 90 mg/dL (70-99) Calcium Level 9.2 mg/dL (8.5-10.1) Total Bilirubin 0.4 mg/dL (0.2-1.0) Aspartate Amino Transf (AST/SGOT) 30 U/L (15-37) Alanine Aminotransferase (ALT/SGPT) 23 U/L (16-63) Alkaline Phosphatase 120 U/L (46-116) Troponin I Quantitative < 0.017 ng/mL (0.000-0.055) FK-Rpj-N-Type Natriuretic Peptide 388 pg/mL (0-124) Total Protein 7.6 g/dL (6.4-8.2) Albumin 3.4 g/dL (3.4-5.0) Albumin/Globulin Ratio 0.8 (1.0-1.7) Influenza Type A Antigen Negative (NEGATIVE) Influenza Type B Antigen Negative (NEGATIVE) Urine Collection Type Unknown Urine Color Yellow Urine Clarity Clear Urine pH 7.5 (<5.0-8.0) Urine Specific [place] 1.015 (1.000-1.030) Urine Protein 100 mg/dL (NEG-TRACE) Urine Glucose (UA) Negative mg/dL (NEG) Urine Ketones (Stick) Negative mg/dL (NEG) Urine Blood Negative (NEG) Urine Nitrite Negative (NEG) Urine Bilirubin Negative (NEG) Urine Urobilinogen Dipstick 0.2 mg/dL (0.2 mg/dL) Urine Leukocyte Esterase Negative (NEG) Urine RBC 3-5 /HPF (0-2) Urine WBC 0 /HPF (0-4) Urine Bacteria 0 /HPF (0-FEW) Urine Opiates Screen Neg (NEG) Urine Methadone Screen Neg (NEG) Urine Barbiturates Neg (NEG) Urine Phencyclidine Screen Neg (NEG) Urine Amphetamine/Methamphetamine Neg (NEG) Urine Benzodiazepines Screen Neg (NEG) Urine Cocaine Screen Neg (NEG) Urine Cannabinoids Screen Pos (NEG) Urine Ethyl Alcohol Neg (NEG) White Blood Count 4.2 x10^3/uL (4.0-11.0) Red Blood Count 4.38 x10^6/uL (4.30-5.70) Hemoglobin 13.5 g/dL (13.0-17.5) Hematocrit 40.2 % (39.0-53.0) Mean Corpuscular Volume 92 fL (79-100) Mean Corpuscular Hemoglobin 31 pg (25-35) Mean Corpuscular Hemoglobin Concent 34 g/dL (31-37) Red Cell Distribution Width 14.9 % (11.5-14.5) Platelet Count 205 x10^3/uL (140-400) Neutrophils (%) (Auto) 70 % (31-73) Lymphocytes (%) (Auto) 18 % (24-48) Monocytes (%) (Auto) 11 % (0-9) Eosinophils (%) (Auto) 1 % (0-3) Basophils (%) (Auto) 1 % (0-3) Neutrophils # (Auto) 2.9 x10^3/uL (1.8-7.7) Lymphocytes # (Auto) 0.8 x10^3/uL (1.0-4.8) Monocytes # (Auto) 0.4 x10^3/uL (0.0-1.1) Eosinophils # (Auto) 0.0 x10^3/uL (0.0-0.7) Basophils # (Auto) 0.0 x10^3/uL (0.0-0.2) Test 08/03/19 17:00 08/03/19 17:40 08/03/19 22:45 Troponin I Quantitative < 0.017 ng/mL (0.000-0.055) < 0.017 ng/mL (0.000-0.055) O2 Saturation 96 % (92-99) Arterial Blood pH 7.51 (7.35-7.45) Arterial Blood pCO2 at Patient Temp 31 mmHg (35-46) Arterial Blood pO2 at Patient Temp 78 mmHg (75-108) Arterial Blood HCO3 24 mmol/L (21-28) Arterial Blood Base Excess 2 mmol/L (-3-3) Oxyhemoglobin 94.7 % Methemoglobin 0.4 % (0.0-1.9) Carbon Monoxide, Quantitative 1.2 % (0.0-1.9) FiO2 21% Laboratory Tests Test 08/03/19 11:15 08/03/19 17:00 08/03/19 17:40 08/03/19 22:45 White Blood Count 4.2 x10^3/uL (4.0-11.0) Red Blood Count 4.38 x10^6/uL (4.30-5.70) Hemoglobin 13.5 g/dL (13.0-17.5) Hematocrit 40.2 % (39.0-53.0) Mean Corpuscular Volume 92 fL (79-100) Mean Corpuscular Hemoglobin 31 pg (25-35) Mean Corpuscular Hemoglobin Concent 34 g/dL (31-37) Red Cell Distribution Width 14.9 % (11.5-14.5) Platelet Count 205 x10^3/uL (140-400) Neutrophils (%) (Auto) 70 % (31-73) Lymphocytes (%) (Auto) 18 % (24-48) Monocytes (%) (Auto) 11 % (0-9) Eosinophils (%) (Auto) 1 % (0-3) Basophils (%) (Auto) 1 % (0-3) Neutrophils # (Auto) 2.9 x10^3/uL (1.8-7.7) Lymphocytes # (Auto) 0.8 x10^3/uL (1.0-4.8) Monocytes # (Auto) 0.4 x10^3/uL (0.0-1.1) Eosinophils # (Auto) 0.0 x10^3/uL (0.0-0.7) Basophils # (Auto) 0.0 x10^3/uL (0.0-0.2) Troponin I Quantitative < 0.017 ng/mL (0.000-0.055) < 0.017 ng/mL (0.000-0.055) O2 Saturation 96 % (92-99) Arterial Blood pH 7.51 (7.35-7.45) Arterial Blood pCO2 at Patient Temp 31 mmHg (35-46) Arterial Blood pO2 at Patient Temp 78 mmHg (75-108) Arterial Blood HCO3 24 mmol/L (21-28) Arterial Blood Base Excess 2 mmol/L (-3-3) Oxyhemoglobin 94.7 % Methemoglobin 0.4 % (0.0-1.9) Carbon Monoxide, Quantitative 1.2 % (0.0-1.9) FiO2 21% Brief Hospital Course Mr. Leos is a 58 old male who presented with chest pressure and headache most likely a consequence of his uncontrolled hypertension due to non compliance. Patient has been evaluated with serial enzymes. He recently had a similar admit not even 3 months ago. Results of his testing the is as follows. EXAM: Two-dimensional and M-mode echocardiogram with Doppler and color Doppler. Other Information Quality : Average HR: 89bpm Rhythm : NSR Technically limited study due to smoking. INDICATION Chest Pain 2D DIMENSIONS RVDd 2.9 (2.9-3.5cm) Left Atrium(2D) 3.0 (1.6-4.0cm) IVSd 1.5 (0.7-1.1cm) Aortic Root(2D) 2.6 (2.0-3.7cm) LVDd 4.1 (3.9-5.9cm) LVOT Diameter 2.0 (1.8-2.4cm) PWd 1.4 (0.7-1.1cm) LVDs 3.0 (2.5-4.0cm) FS (%) 26.9 % SV 40.3 ml LVEF(%) 55.0 (>50%) Aortic Valve AoV Peak Piter. 151.6cm/s AoV VTI 22.0cm AO Peak GR. 9.2mmHg LVOT VTI 16.00cm AO Mean GR. 4mmHg BRADY (VMAX) 2.30cm2 BRADY (VTI) 2.50cm2 Mitral Valve MV E Velocity 58.1cm/s MV DECEL TIME 146ms MV A Velocity 80.3cm/s E/A Ratio 0.7 MV A Duration 77ms TDI Lateral E' P. V 11.46cm/s Medial E' P. V 6.89cm/s E/Lateral E' 5.1 E/Medial E' 8.4 LEFT VENTRICLE The left ventricle is normal size. There is moderate concentric left ventricular hypertrophy. The left ventricular systolic function is normal. The Ejection Fra ction is 55-60%. There is normal LV segmental wall motion. Transmitral Doppler flow pattern is Grade I-abnormal relaxation pattern. RIGHT VENTRICLE The right ventricle is normal size. There is normal right ventricular wall thickness. The right ventricular systolic function is normal. ATRIA The left atrium size is normal. The right atrium size is normal. The interatrial septum is intact with no evidence for an atrial septal defect or patent foramen ovale as noted on 2-D or Doppler imaging. AORTIC VALVE The aortic valve is thickened but opens well. The aortic valve is trileaflet. Doppler and Color Flow revealed no significant aortic regurgitation. There is no significant aortic valvular stenosis. MITRAL VALVE The mitral valve is normal in structure and function. There is no evidence of mitral valve prolapse. There is no mitral valve stenosis. Doppler and Color-flow revealed trace mitral regurgitation. TRICUSPID VALVE The tricuspid valve is normal in structure and function. Doppler and Color Flow revealed no tricuspid valve regurgitation noted. There is no tricuspid valve prolapse or vegetation. There is no tricuspid valve stenosis. PULMONIC VALVE The pulmonic valve is not well visualized. GREAT VESSELS The aortic root is normal in size. The ascending aorta is normal in size. The IVC is normal in size and collapses >50% with inspiration. PERICARDIAL EFFUSION There is no evidence of significant pericardial effusion. Critical Notification Critical Value: No <Conclusion> The left ventricular systolic function is normal. The Ejection Fraction is 55-60%. There is moderate concentric left ventricular hypertrophy. There is normal LV segmental wall motion. Transmitral Doppler flow pattern is Grade I-abnormal relaxation pattern. Doppler and Color-flow revealed trace mitral regurgitation. There is no evidence of significant pericardial effusion. Signed by : Carolynn Hall, Electronically Approved : 06/10/2019 12:40:41 DICTATED and SIGNED BY: CAROLYNN HALL MD DATE: 06/10/19 1207 HEART CATH HEART CATH Findings. Hemodynamics. Left ventricular pressure 150/20, aortic root pressure of 154/92. Coronaries. Left main. The left main was a short vessel with no lesions. Left anterior descending. The LAD was a moderate size vessel. It had a mid 20% lesion. Left circumflex. The left circumflex was a very large dominant vessel with no lesions. Right coronary artery. The right coronary artery is a small nondominant vessel with no lesions. Left ventriculogram. The left ventricle showed normal left ventricular systolic function with an ejection fraction estimated at 55%. Aortic root. The aortic root is mildly enlarged. There was no aortic insufficiency. <Conclusion> Mild single-vessel coronary artery disease. Intact LV systolic function. Mildly enlarged aortic root. Patient asking for pain medications upon discharge despite being in no acute distress. Discussed with [employer] identity management consultant no further testing PE: Lungs: clear to auscultation shallow inspiratory effort CVS s1s2 rr no murmurs Discharge Information Condition at Discharge: Improved Follow Up: Weeks Disposition/Orders: D/C to Home Scheduled Amlodipine Besylate (Amlodipine Besylate) 10 Mg Tablet, 10 MG PO DAILY for hypertension for 30 Days, #30 Prescribed by: JUAN JOSE MARVIN MD on 08/04/19 1101 Aspirin (Aspirin) 325 Mg Tablet, 325 MG PO DAILY for for 30 Days, #30 Prescribed by: JUAN JOSE MARVIN MD on 08/04/19 1101 Carvedilol (Carvedilol ) 6.25 Mg Tablet, 6.25 MG PO BIDWMEALS for CAD for 30 Days, #60 Prescribed by: JUAN JOSE MARVIN MD on 08/04/19 1101 Ferrous Sulfate (Ferrous Sulfate) 325 Mg Tablet, 325 MG PO DAILY for , (Reported) Entered as Reported by: Shon Flowers on 06/09/191818 Last Action: Continued on 08/03/191647 by EMMANUEL COREY MD Hydrocodone/Apap 5-325 ([place] 5-325 Tablet) 1 Each Tablet, 1 TAB PO Q6HRS, #20 Prescribed by: Naa Hinkle APRN on 07/03/191726 Last Action: Continued on 08/03/191647 by EMMANUEL COREY MD Lisinopril/Hydrochlorothiazide (Lisinopril-Hctz 20-25 Mg Tab) 1 Each Tablet, 1 TAB PO DAILY for hypertension for 30 Days, #30 Ref 5 Prescribed by: JUAN JOSE MARVIN MD on 08/04/19 1101 Tamsulosin Hcl (Flomax) 0.4 Mg Cap.er.24h, 0.4 MG PO DAILY for 30 Days, #30 Prescribed by: CARON WONG MD on 06/26/17 1344 Last Action: Continued on 08/03/191647 by EMMANUEL COREY MD Trazodone Hcl (Trazodone Hcl) 150 Mg Tablet, 150 MG PO HS for insomnia, (Reported) Entered as Reported by: Shon Flowers on 06/09/191818 Last Action: Converted on 08/03/191647 by EMMANUEL COREY MD Scheduled PRN Albuterol Sulfate (Proair Hfa Inhaler) 8.5 Gm Hfa.aer.ad, 2 PUFF IH PRN Q6HRS PRN for wheezing for 21 Days, #1 Ref 0 Prescribed by: JUAN JOSE MARVIN MD on 08/04/19 1101 Alprazolam (Xanax) 0.5 Mg Tablet, 0.5 MG PO PRN Q8HRS PRN for ANXIETY / AGITATION, Ref 0 (Reported) Entered as Reported by: Shon Flowers on 06/11/19 1410 Last Action: Continued on 08/03/191647 by EMMANUEL COREY MD Discontinued Medications Clindamycin Hcl (Clindamycin Hcl) 300 Mg Capsule, 1 CAP PO TID, #21 Prescribed by: Naa Hinkle APRN on 3/6/20 1727 Last Action: HELD on 08/03/198 by MD YON SANTANA HECTOR M MD Aug 04, 2019 11:13
[2019-08-04 11:46] LABS: CALCIUM 8.9 mg/dL (8.5-10.1); CREATININE 1.7 mg/dL (0.7-1.3); GFR 50.7; MAGNESIUM 1.8 mg/dL (1.8-2.4); POTASSIUM 3.2 mmol/L (3.5-5.1)
[2019-08-04 11:53] LABS: HEMATOCRIT 43.5 % (39.0-53.0); HEMOGLOBIN 14.7 g/dL (13.0-17.5); RED BLOOD COUNT 4.79 x10^6/uL (4.30-5.70); RED CELL DISTRIBUTION WIDTH 14.7 % (11.5-14.5); WHITE BLOOD COUNT 9.3 x10^3/uL (4.0-11.0)
[2019-08-04] MEDS ORDERED: POTASSIUM CHLORIDE 20 MEQ TABLET.ER. PO ONE (12:15)
[2019-08-04] MEDS ORDERED: METOPROLOL TART IMMED RELEASE 25 MG TABLET. PO SCH (21:00)
== END 2019-08-04 12:55 | disposition home or self-care (01) | DRG 305 ==
LOC: ER 09:45 → 2 NORTH 13:50
PROVIDERS: ADMIT Family Medicine; ATTEND Family Medicine
DX: I16.0 Hypertensive urgency (principal); J44.1 Chronic obstructive pulmonary disease with (acute) exacerbation; I12.9 Hypertensive chronic kidney disease with stage 1 through stage 4 chronic kidney disease, or unspecified chronic kidney disease; E78.00 Pure hypercholesterolemia, unspecified; E78.5 Hyperlipidemia, unspecified; F12.10 Cannabis abuse, uncomplicated; F17.210 Nicotine dependence, cigarettes, uncomplicated; F31.9 Bipolar disorder, unspecified; I25.119 Atherosclerotic heart disease of native coronary artery with unspecified angina pectoris; K21.9 Gastro-esophageal reflux disease without esophagitis; Z96.649 Presence of unspecified artificial hip joint; N18.2 Chronic kidney disease, stage 2 (mild); Z76.5 Malingerer [conscious simulation]; Z82.49 Family history of ischemic heart disease and other diseases of the circulatory system; Z91.14 Patient's other noncompliance with medication regimen; Z91.19 Patient's noncompliance with other medical treatment and regimen; Z95.5 Presence of coronary angioplasty implant and graft; F41.9 Anxiety disorder, unspecified; M19.90 Unspecified osteoarthritis, unspecified site; Z86.718 Personal history of other venous thrombosis and embolism; Z79.01 Long term (current) use of anticoagulants; Z88.0 Allergy status to penicillin; Z79.899 Other long term (current) drug therapy
CPT/HCPCS: 36415; 36600; 70450; 71045; 80048; 80053; 80307; 81001; 82805; 83735; 83880; 84484; 85025; 85027; 87804; 93005; 94640; 94760; 96374; 96375; J0360; J0780; J1885; J2270; J2930; J3010; J3490; J7030; 99285-25; G0378; J7613